=== PATIENT | female | born 1945 | race Caucasian/White ===

== ENCOUNTER 2019-03-26 13:43 | Observation (INO) | payer MEDICARE ==
--- NOTE | 2019-03-26 14:32 | EDM.PDOC ---
ED HPI GENERAL MEDICAL PROBLEM - General Stated Complaint: CHEST PAIN Time Seen by Provider: 03/26/19 14:10 Source of Information: Reports: Patient, EMS, Family History Limitations: Reports: No Limitations - History of Present Illness INITIAL COMMENTS - FREE TEXT/NARRATIVE: brought in by EMS from home states she developed weakness and diarrhea , went to bathroom then felt not well ( same as she felt when she had SD about one month ago) so she decided to call her daughter As her daughter was walking into the apartment she tried to get up and then fainted daughter states she caught her as she was falling and he did not hit her head , no seizure activity noted Earlier pt had complained to daughter that she felt numbness and tingling on the left side of her face , and when she called her daughter with this episode daughter states her speech was slurred but now speech is improving and patient has become more alert and her color is improving Takes " memory pills" ? dementia Onset: Today Onset Date: 03/26/19 Duration: Hour(s): (2) Location: Reports: Abdomen Quality: Reports: Dull Severity: Mild Worsens with: Reports: Movement Context: Reports: Activity Associated Symptoms: Reports: Confusion, Headaches, Malaise, Syncope, Weakness - Related Data Allergies Allergy/AdvReac Type Severity Reaction Status Date / Time No Known Allergies Allergy Verified 03/26/19 14:30 Home Meds: Home Meds Aspirin [Halfprin] 81 mg PO DAILY 03/26/19 [History] Cefdinir [Omnicef] 300 mg PO BID 03/26/19 [History] Esomeprazole Magnesium 40 mg PO DAILY 03/26/19 [History] Latanoprost 1 drop EYEBOTH BEDTIME 03/26/19 [History] Levothyroxine Sodium [Synthroid] 75 mcg PO ACBREAKFAST 03/26/19 [History] Losartan Potassium 100 mg PO DAILY 03/26/19 [History] Prevagen 1 cap PO DAILY 03/26/19 [History] Ticagrelor [Brilinta] 90 mg PO BID 03/26/19 [History] Venlafaxine HCl [Venlafaxine ER] 75 mg PO DAILY 03/26/19 [History] amLODIPine [Norvasc] 2.5 mg PO DAILY 03/26/19 [History] atorvaSTATin [Lipitor] 20 mg PO BEDTIME 03/26/19 [History] metFORMIN HCl [Metformin HCl ER] 500 mg PO DAILY 03/26/19 [History] ED ROS GENERAL - Review of Systems Review Of Systems: See Below Constitutional: Reports: Weakness, Fatigue HEENT: Reports: No Symptoms Respiratory: Reports: No Symptoms Cardiovascular: Reports: Lightheadedness. Denies: Chest Pain, Blood Pressure Problem, Dyspnea on Exertion Endocrine: Reports: Fatigue GI/Abdominal: Reports: Abdominal Pain, Anorexia, Diarrhea, Decreased Appetite, Nausea, Vomiting : Reports: No Symptoms Musculoskeletal: Reports: No Symptoms Skin: Reports: Other (laceration left cheek from fall ) Neurological: Reports: Dizziness, Difficulty Walking, Change in Speech Psychiatric: Reports: No Symptoms - Physical Exam Exam: See Below General Appearance: Alert, WD/WN, No Apparent Distress, Anxious. No: Severe Distress Eye Exam: Bilateral Eye: EOMI Ears: Normal External Exam Nose: Normal Inspection Throat/Mouth: Normal Inspection Head Exam: Facial Abrasions Respiratory/Chest: No Respiratory Distress Cardiovascular: Normal Peripheral Pulses GI/Abdominal: Soft, Non-Tender Neuro Exam (Abbreviated): Alert, Oriented, Normal Reflexes, No Motor/Sensory Deficits, Memory Loss Recent Events, Other (left sided facial droop) DTR: 2+: Patella (R), Patella (L) Back Exam: Normal Inspection, Full Range of Motion Extremities: Normal Inspection, Normal Range of Motion, Non-Tender. No: Pedal Edema Psychiatric: Normal Affect Skin Exam: Warm, Dry EKG INTERPRETATION EKG Date: 03/26/19 Rhythm: NSR [place]: Normal P-Wave: Present QRS: Normal ST-T: Normal Course - Orders/Labs/Meds Orders: Active Orders 24 hr Category Date Time Status Patient Status [ADT] Routine ADT 03/26/19 16:58 Ordered Bedrest Bathroom Privileges [RC] ASDIRECTED Care 03/26/19 16:58 Ordered EKG Documentation Completion [RC] ASDIRECTED Care 03/26/19 14:02 Active Intake and Output [RC] QSHIFT Care 03/26/19 16:59 Ordered Oxygen Therapy [RC] PRN Care 03/26/19 16:56 Ordered Oxygen Therapy [RC] PRN Care 03/26/19 16:58 Ordered VTE/DVT Education [RC] Per Unit Routine Care 03/26/19 16:56 Ordered VTE/DVT Education [RC] Per Unit Routine Care 03/26/19 16:58 Ordered Vital Signs [RC] Q4H Care 03/26/19 16:56 Ordered Vital Signs [RC] Q4H Care 03/26/19 16:58 Ordered 2 Gram Sodium Diet [DIET] Diet 03/26/19 Dinner Ordered Chest 2V [CR] Stat Exams 03/26/19 14:19 Taken Head wo Cont [CT] Stat Exams 03/26/19 14:19 Taken BASIC METABOLIC PANEL,BMP [CHEM] AM Lab 03/27/19 05:11 Ordered C DIFFICILE AG/TOXIN W/REFLEX [RM] Stat Lab 03/26/19 14:24 Ordered CBC WITH AUTO DIFF [HEME] AM Lab 03/27/19 05:11 Ordered STOOL CULTURE Stat Lab 03/26/19 14:22 Ordered TROPONIN I [CHEM] Timed Lab 03/26/19 16:58 Ordered UA W/MICROSCOPIC [URIN] Stat Lab 03/26/19 14:20 Ordered Acetaminophen [Tylenol] Med 03/26/19 16:58 Ordered 650 mg PO Q4H PRN Aspirin [Halfprin] Med 03/27/19 09:00 Ordered 81 mg PO DAILY Esomeprazole Magnesium [Esomeprazole Magnesium] Med 03/27/19 09:00 Ordered 40 mg PO DAILY Levothyroxine Med 03/27/19 07:30 Ordered 75 mcg PO ACBREAKFAST Losartan [Cozaar] Med 03/27/19 09:00 Ordered 100 mg PO DAILY Ondansetron [Zofran ODT] Med 03/26/19 16:58 Ordered 4 mg PO Q6H PRN Sodium Chloride 0.9% [Normal Saline] 1,000 ml Med 03/26/19 15:15 Active IV ASDIRECTED Sodium Chloride 0.9% [Saline Flush] Med 03/26/19 16:58 Ordered 10 ml FLUSH ASDIRECTED PRN Ticagrelor [Brilinta] Med 03/26/19 21:00 Ordered 90 mg PO BID Venlafaxine [Effexor XR] Med 03/27/19 09:00 Ordered 75 mg PO DAILY amLODIPine [Norvasc] Med 03/27/19 09:00 Ordered 2.5 mg PO DAILY atorvaSTATin [Lipitor] Med 03/26/19 21:00 Ordered 20 mg PO BEDTIME metFORMIN [Glucophage XR] Med 03/27/19 09:00 Ordered 500 mg PO DAILY Saline Lock Insert [OM.PC] Routine Oth 03/26/19 16:58 Ordered Resuscitation Status Routine Resus Stat 03/26/19 16:55 Ordered EKG 12 Lead [EK] Routine Ther 03/26/19 14:02 Ordered Medication Orders Acetaminophen (Tylenol) 650 mg PO Q4H PRN PRN Reason: Pain (Mild 1-3)/fever Amlodipine Besylate (Norvasc) 2.5 mg PO DAILY [facility] Aspirin (Halfprin) 81 mg PO DAILY [facility] Atorvastatin Calcium (Lipitor) 20 mg PO BEDTIME [facility] Sodium Chloride (Normal Saline) 1,000 mls @ 999 mls/hr IV ASDIRECTED [facility] Levothyroxine Sodium (Levothyroxine) 75 mcg PO ACBREAKFAST [facility] Losartan Potassium (Cozaar) 100 mg PO DAILY [facility] Metformin HCl (Glucophage Xr) 500 mg PO DAILY [facility] Non-Formulary Medication (Esomeprazole Magnesium [Esomeprazole Magnesium]) 40 mg PO DAILY [facility] Ondansetron HCl (Zofran Odt) 4 mg PO Q6H PRN PRN Reason: nausea, able to take PO Sodium Chloride (Saline Flush) 10 ml FLUSH ASDIRECTED PRN PRN Reason: Keep Vein Open Ticagrelor (Brilinta) 90 mg PO BID [facility] Venlafaxine HCl (Effexor Xr) 75 mg PO DAILY [facility] Labs: Laboratory Tests 03/26/19 03/26/19 03/26/19 Range/Units 14:10 14:10 14:10 WBC 15.4 H (4.5-12.0) X10-3/uL RBC 5.65 H (3.23-5.20) x10(6)uL Hgb 14.5 (11.5-15.5) g/dL Hct 44.9 (30.0-51.3) % MCV 79.4 L (80-96) fL MCH 25.7 L (27.7-33.6) pg MCHC 32.3 (32.2-35.4) g/dL RDW 14.6 (11.5-15.5) % Plt Count 548 H (125-369) X10(3)uL MPV 8.0 (7.4-10.4) fL Neut % (Auto) 73.0 (46-82) % Lymph % (Auto) 17.0 (13-37) % Tyler % (Auto) 6.4 (4-12) % Eos % (Auto) 1 (1.0-5.0) % Baso % (Auto) 2 (0-2) % Neut # (Auto) 11.3 H (1.6-8.3) # Lymph # (Auto) 2.6 (0.6-5.0) # Tyler # (Auto) 1.0 (0.0-1.3) # Eos # (Auto) 0.2 (0.0-0.8) # Baso # (Auto) 0.3 H (0.0-0.2) # PT (8.7-11.1) INR (0.89-1.13) Sodium 142 (135-145) mmol/L Potassium 3.5 (3.5-5.3) mmol/L Chloride 105 (100-110) mmol/L Carbon Dioxide 29 (21-32) mmol/L BUN 22 H D (7-18) mg/dL Creatinine 1.3 H (0.55-1.02) mg/dL Est Cr Clr Drug Dosing TNP Estimated GFR (MDRD) 40 L (>60) BUN/Creatinine Ratio 16.9 (9-20) Glucose 164 H (80-116) mg/dL Calcium 9.0 (8.6-10.2) mg/dL Total Bilirubin 0.5 (0.1-1.3) mg/dL AST 34 H D (5-25) IU/L ALT 41 H D (12-36) U/L Alkaline Phosphatase 91 (56-112) IU/L Troponin I 9.6 (4.0-60.3) pg/mL Total Protein 7.6 (6.0-8.0) g/dL Albumin 3.8 (3.2-4.6) g/dL Globulin 3.8 g/dL Albumin/Globulin Ratio 1.0 / Range/Units 14:10 WBC (4.5-12.0) X10-3/uL RBC (3.23-5.20) x10(6)uL Hgb (11.5-15.5) g/dL Hct (30.0-51.3) % MCV (80-96) fL MCH (27.7-33.6) pg MCHC (32.2-35.4) g/dL RDW (11.5-15.5) % Plt Count (125-369) X10(3)uL MPV (7.4-10.4) fL Neut % (Auto) (46-82) % Lymph % (Auto) (13-37) % Tyler % (Auto) (4-12) % Eos % (Auto) (1.0-5.0) % Baso % (Auto) (0-2) % Neut # (Auto) (1.6-8.3) # Lymph # (Auto) (0.6-5.0) # Tyler # (Auto) (0.0-1.3) # Eos # (Auto) (0.0-0.8) # Baso # (Auto) (0.0-0.2) # PT 10.3 (8.7-11.1) INR 1.06 (0.89-1.13) Sodium (135-145) mmol/L Potassium (3.5-5.3) mmol/L Chloride (100-110) mmol/L Carbon Dioxide (21-32) mmol/L BUN (7-18) mg/dL Creatinine (0.55-1.02) mg/dL Est Cr Clr Drug Dosing Estimated GFR (MDRD) (>60) BUN/Creatinine Ratio (9-20) Glucose (80-116) mg/dL Calcium (8.6-10.2) mg/dL Total Bilirubin (0.1-1.3) mg/dL AST (5-25) IU/L ALT (12-36) U/L Alkaline Phosphatase (56-112) IU/L Troponin I (4.0-60.3) pg/mL Total Protein (6.0-8.0) g/dL Albumin (3.2-4.6) g/dL Globulin g/dL Albumin/Globulin Ratio Meds: Medications Generic Name Dose Route Start Last Admin Trade Name Freq PRN Reason Stop Dose Admin Acetaminophen 650 mg 03/26/19 16:58 Tylenol PO Q4H PRN Pain (Mild 1-3)/fever Amlodipine Besylate 2.5 mg 03/27/19 09:00 Norvasc PO DAILY [facility] Aspirin 81 mg 03/27/19 09:00 Halfprin PO DAILY [facility] Atorvastatin Calcium 20 mg 03/26/19 21:00 Lipitor PO BEDTIME [facility] Sodium Chloride 1,000 mls @ 999 mls/hr 03/26/19 15:15 Normal Saline IV ASDIRECTED [facility] Levothyroxine Sodium 75 mcg 03/27/19 07:30 Levothyroxine PO ACBREAKFAST [facility] Losartan Potassium 100 mg 03/27/19 09:00 Cozaar PO DAILY [facility] Metformin HCl 500 mg 03/27/19 09:00 Glucophage Xr PO DAILY [facility] Non-Formulary Medication 40 mg 03/27/19 09:00 Esomeprazole Magnesium [Esomeprazole Magnesium] PO DAILY [facility] Ondansetron HCl 4 mg 03/26/19 16:58 Zofran Odt PO Q6H PRN nausea, able to take PO Sodium Chloride 10 ml 03/26/19 16:58 Saline Flush FLUSH ASDIRECTED PRN Keep Vein Open Ticagrelor 90 mg 03/26/19 21:00 Brilinta PO BID [facility] Venlafaxine HCl 75 mg 03/27/19 09:00 Effexor Xr PO DAILY ANNA - Re-Assessments/Exams Free Text/Narrative Re-Assessment/Exam: 03/26/19 15:53 pt has remained stable with no mental status changes Labs: elevated WBC with left shift 03/26/19 15:59 Departure - Departure Time of Disposition: 17:10 Disposition: Refer to Observation Condition: Fair Clinical Impression: Syncope and collapse, Diarrhea, Weakness generalized, Stented coronary artery, Facial droop - Discharge Information *PRESCRIPTION DRUG MONITORING PROGRAM REVIEWED*: Not Applicable *COPY OF PRESCRIPTION DRUG MONITORING REPORT IN PATIENT [place]: Not Applicable Referrals: Janene King MD [Primary Care Provider] - Sepsis Event Note - Focused Exam Date Exam was Performed: 03/26/19 Time Exam was Performed: 17:06 - My Orders Last 24 Hours: My Active Orders 03/26/19 14:02 EKG Documentation Completion [RC] ASDIRECTED EKG 12 Lead [EK] Routine 03/26/19 14:19 Chest 2V [CR] Stat Head wo Cont [CT] Stat 03/26/19 14:20 UA W/MICROSCOPIC [URIN] Stat 03/26/19 14:22 STOOL CULTURE Stat 03/26/19 14:24 C DIFFICILE AG/TOXIN W/REFLEX [RM] Stat 03/26/19 15:15 Sodium Chloride 0.9% [Normal Saline] 1,000 ml IV ASDIRECTED 03/26/19 16:55 Resuscitation Status Routine 03/26/19 16:56 Oxygen Therapy [RC] PRN VTE/DVT Education [RC] Per Unit Routine Vital Signs [RC] Q4H 03/26/19 16:58 Patient Status [ADT] Routine Bedrest Bathroom Privileges [RC] ASDIRECTED Oxygen Therapy [RC] PRN VTE/DVT Education [RC] Per Unit Routine Vital Signs [RC] Q4H TROPONIN I [CHEM] Timed Acetaminophen [Tylenol] 650 mg PO Q4H PRN Ondansetron [Zofran ODT] 4 mg PO Q6H PRN Sodium Chloride 0.9% [Saline Flush] 10 ml FLUSH ASDIRECTED PRN Saline Lock Insert [OM.PC] Routine 03/26/19 16:59 Intake and Output [RC] QSHIFT 03/26/19 21:00 Ticagrelor [Brilinta] 90 mg PO BID atorvaSTATin [Lipitor] 20 mg PO BEDTIME 03/26/19 Dinner 2 Gram Sodium Diet [DIET] 03/27/19 05:11 BASIC METABOLIC PANEL,BMP [CHEM] AM CBC WITH AUTO DIFF [HEME] AM 03/27/19 07:30 Levothyroxine 75 mcg PO ACBREAKFAST 03/27/19 09:00 Aspirin [Halfprin] 81 mg PO DAILY Esomeprazole Magnesium [Esomeprazole Magnesium] 40 mg PO DAILY Losartan [Cozaar] 100 mg PO DAILY Venlafaxine [Effexor XR] 75 mg PO DAILY amLODIPine [Norvasc] 2.5 mg PO DAILY metFORMIN [Glucophage XR] 500 mg PO DAILY - Assessment/Plan Last 24 Hours: My Active Orders 03/26/19 14:02 EKG Documentation Completion [RC] ASDIRECTED EKG 12 Lead [EK] Routine 03/26/19 14:19 Chest 2V [CR] Stat Head wo Cont [CT] Stat 03/26/19 14:20 UA W/MICROSCOPIC [URIN] Stat 03/26/19 14:22 STOOL CULTURE Stat 03/26/19 14:24 C DIFFICILE AG/TOXIN W/REFLEX [RM] Stat 03/26/19 15:15 Sodium Chloride 0.9% [Normal Saline] 1,000 ml IV ASDIRECTED 03/26/19 16:55 Resuscitation Status Routine 03/26/19 16:56 Oxygen Therapy [RC] PRN VTE/DVT Education [RC] Per Unit Routine Vital Signs [RC] Q4H 03/26/19 16:58 Patient Status [ADT] Routine Bedrest Bathroom Privileges [RC] ASDIRECTED Oxygen Therapy [RC] PRN VTE/DVT Education [RC] Per Unit Routine Vital Signs [RC] Q4H TROPONIN I [CHEM] Timed Acetaminophen [Tylenol] 650 mg PO Q4H PRN Ondansetron [Zofran ODT] 4 mg PO Q6H PRN Sodium Chloride 0.9% [Saline Flush] 10 ml FLUSH ASDIRECTED PRN Saline Lock Insert [OM.PC] Routine 03/26/19 16:59 Intake and Output [RC] QSHIFT 03/26/19 21:00 Ticagrelor [Brilinta] 90 mg PO BID atorvaSTATin [Lipitor] 20 mg PO BEDTIME 03/26/19 Dinner 2 Gram Sodium Diet [DIET] 03/27/19 05:11 BASIC METABOLIC PANEL,BMP [CHEM] AM CBC WITH AUTO DIFF [HEME] AM 03/27/19 07:30 Levothyroxine 75 mcg PO ACBREAKFAST 03/27/19 09:00 Aspirin [Halfprin] 81 mg PO DAILY Esomeprazole Magnesium [Esomeprazole Magnesium] 40 mg PO DAILY Losartan [Cozaar] 100 mg PO DAILY Venlafaxine [Effexor XR] 75 mg PO DAILY amLODIPine [Norvasc] 2.5 mg PO DAILY metFORMIN [Glucophage XR] 500 mg PO DAILY
[2019-03-26] MEDS ORDERED: Sodium Chloride 0.9% 1,000 ML IV SCH ×2 (15:15→18:15)
[2019-03-26] MEDS ORDERED: Ondansetron 4 MG Tab.DIS PO PRN (16:58)
[2019-03-26] MEDS ORDERED: Acetaminophen 325 MG Tab PO PRN (16:58)
--- NOTE | 2019-03-26 18:17 | PCM.HP.2 ---
H&P History of Present Illness - General Date of Service: 03/26/19 Admit Problem/Dx: Admission Diagnosis/Problem Admission Diagnosis/Problem Syncope and collapse Source of Information: Patient, Family History Limitations: Reports: No Limitations - History of Present Illness Initial Comments - Free Text/Narative: Heather is a 74-year-old female who was brought in by EMS, after syncopal event. She complained initially of not feeling well, with 2 episodes of loose stoools and in the presence of her daughter, while standing,she lost consciousness. She was noted to be cool, clammy, sweaty and pale. She regained consciousness After a few minutes. At The time of my physical examination this evening, she feels much better. She denies any specific chest pain, shortness of breath or headache. Did not hit the head and there was no seizure. She has a history of coronary disease and a stent about a month ago. She also has hypertension that is well controlled. The daughter endorses some slurred speech that was noted earlier ,along with numbness of the face but focal no weakness. - Related Data Allergies/Adverse Reactions: Allergies Allergy/AdvReac Type Severity Reaction Status Date / Time No Known Allergies Allergy Verified 03/26/19 14:30 Home Medications: Home Meds Aspirin [Halfprin] 81 mg PO DAILY 03/26/19 [History] Cefdinir [Omnicef] 300 mg PO BID 03/26/19 [History] Esomeprazole Magnesium 40 mg PO DAILY 03/26/19 [History] Latanoprost 1 drop EYEBOTH BEDTIME 03/26/19 [History] Levothyroxine Sodium [Synthroid] 75 mcg PO ACBREAKFAST 03/26/19 [History] Losartan Potassium 100 mg PO DAILY 03/26/19 [History] Prevagen 1 cap PO DAILY 03/26/19 [History] Ticagrelor [Brilinta] 90 mg PO BID 03/26/19 [History] Venlafaxine HCl [Venlafaxine ER] 75 mg PO DAILY 03/26/19 [History] amLODIPine [Norvasc] 2.5 mg PO DAILY 03/26/19 [History] atorvaSTATin [Lipitor] 20 mg PO BEDTIME 03/26/19 [History] metFORMIN HCl [Metformin HCl ER] 500 mg PO DAILY 03/26/19 [History] Past Medical History HEENT History: Reports: Cataract, Impaired Vision Cardiovascular History: Reports: Hypertension, [place], Stents Genitourinary History: Reports: Urinary Incontinence [employer] History: Reports: Musculoskeletal History: Reports: Arthritis, Back Pain, Chronic Psychiatric History: Reports: Depression Endocrine/Metabolic History: Reports: Diabetes, Type II - Past Surgical History HEENT Surgical History: Reports: Oral Surgery GI Surgical History: Reports: Appendectomy, Cholecystectomy, Colonoscopy, EGD Female Surgical History: Reports: Hysterectomy, Ureteral Stent Musculoskeletal Surgical History: Reports: Carpal Tunnel, Hip Replacement, Other (See Below) Other Musculoskeletal Surgeries/Procedures:: Neck surgery, back surgery Social & Family History - Tobacco Use Smoking Status *Q: Former Smoker Used Tobacco, but Quit: Yes Month/Year Tobacco Last Used: 1991 - Caffeine Use Caffeine Use: Reports: Soda - Recreational Drug Use Recreational Drug Use: No H&P Review of Systems - Review of Systems: Review Of Systems: Comprehensive ROS is negative, except as noted in HPI. Exam - Exam Exam: See Below - Vital Signs Vital Signs: Last Vital Signs Temp 97.7 F 03/26/19 17:00 Pulse 77 03/26/19 17:00 Resp 18 03/26/19 17:00 BP 160/81 H 03/26/19 17:00 Pulse Ox 100 03/26/19 17:00 Weight: 69.944 kg - Exam General: Alert, Oriented, 4 HEENT: PERRLA, Hearing Intact, Mucosa Moist & [place], Nares Patent, Normal Nasal Septum, Posterior Pharynx Clear, Conjunctiva Clear, EOMI, EACs Clear, TMs Clear Neck: Supple, Trachea Midline, 2 Lungs: Clear to Auscultation, Normal Respiratory Effort Cardiovascular: Regular Rate, Regular Rhythm GI/Abdominal Exam: Normal Bowel Sounds, Soft, Non-Tender, No Organomegaly, No Distention, No Abnormal Bruit, No Mass, Pelvis Stable (Female) Exam: Deferred Rectal (Female) Exam: Deferred Back Exam: Normal Inspection, Full Range of Motion, NT Extremities: Normal Inspection, Normal Range of Motion, Non-Tender, No Pedal Edema, Normal Capillary Refill Skin: Warm, Dry, Intact Neurological: Cranial Nerves Intact, Reflexes Equal Bilateral Neuro Extensive - Mental Status: Alert, Oriented x3, Normal Mood/Affect, Normal Cognition Neuro Extensive - Motor, Sensory, Reflexes: CN II-XII Intact, Normal Gait, Normal Reflexes Psychiatric: Alert, Normal Affect, Normal Mood - Patient Data Lab Results Last 24 hrs: Laboratory Results - last 24 hr 03/26/19 03/26/19 03/26/19 Range/Units 14:10 14:10 14:10 WBC 15.4 H (4.5-12.0) X10-3/uL RBC 5.65 H (3.23-5.20) x10(6)uL Hgb 14.5 (11.5-15.5) g/dL Hct 44.9 (30.0-51.3) % MCV 79.4 L (80-96) fL MCH 25.7 L (27.7-33.6) pg MCHC 32.3 (32.2-35.4) g/dL RDW 14.6 (11.5-15.5) % Plt Count 548 H (125-369) X10(3)uL MPV 8.0 (7.4-10.4) fL Neut % (Auto) 73.0 (46-82) % Lymph % (Auto) 17.0 (13-37) % [place] % (Auto) 6.4 (4-12) % Eos % (Auto) 1 (1.0-5.0) % Baso % (Auto) 2 (0-2) % Neut # (Auto) 11.3 H (1.6-8.3) # Lymph # (Auto) 2.6 (0.6-5.0) # Bound[place] # (Auto) 1.0 (0.0-1.3) # Eos # (Auto) 0.2 (0.0-0.8) # Baso # (Auto) 0.3 H (0.0-0.2) # PT (8.7-11.1) INR (0.89-1.13) Sodium 142 (135-145) mmol/L Potassium 3.5 (3.5-5.3) mmol/L Chloride 105 (100-110) mmol/L Carbon Dioxide 29 (21-32) mmol/L BUN 22 H D (7-18) mg/dL Creatinine 1.3 H (0.55-1.02) mg/dL Est Cr Clr Drug Dosing TNP Estimated GFR (MDRD) 40 L (>60) BUN/Creatinine Ratio 16.9 (9-20) Glucose 164 H (80-116) mg/dL Calcium 9.0 (8.6-10.2) mg/dL Total Bilirubin 0.5 (0.1-1.3) mg/dL AST 34 H D (5-25) IU/L ALT 41 H D (12-36) U/L Alkaline Phosphatase 91 (56-112) IU/L Troponin I 9.6 (4.0-60.3) pg/mL Total Protein 7.6 (6.0-8.0) g/dL Albumin 3.8 (3.2-4.6) g/dL Globulin 3.8 g/dL Albumin/Globulin Ratio 1.0 03/26/19 03/26/19 Range/Units 14:10 17:28 WBC (4.5-12.0) X10-3/uL RBC (3.23-5.20) x10(6)uL Hgb (11.5-15.5) g/dL Hct (30.0-51.3) % MCV (80-96) fL MCH (27.7-33.6) pg MCHC (32.2-35.4) g/dL RDW (11.5-15.5) % Plt Count (125-369) X10(3)uL MPV (7.4-10.4) fL Neut % (Auto) (46-82) % Lymph % (Auto) (13-37) % [place] % (Auto) (4-12) % Eos % (Auto) (1.0-5.0) % Baso % (Auto) (0-2) % Neut # (Auto) (1.6-8.3) # Lymph # (Auto) (0.6-5.0) # Boundary # (Auto) (0.0-1.3) # Eos # (Auto) (0.0-0.8) # Baso # (Auto) (0.0-0.2) # PT 10.3 (8.7-11.1) INR 1.06 (0.89-1.13) Sodium (135-145) mmol/L Potassium (3.5-5.3) mmol/L Chloride (100-110) mmol/L Carbon Dioxide (21-32) mmol/L BUN (7-18) mg/dL Creatinine (0.55-1.02) mg/dL Est Cr Clr Drug Dosing Estimated GFR (MDRD) (>60) BUN/Creatinine Ratio (9-20) Glucose (80-116) mg/dL Calcium (8.6-10.2) mg/dL Total Bilirubin (0.1-1.3) mg/dL AST (5-25) IU/L ALT (12-36) U/L Alkaline Phosphatase (56-112) IU/L Troponin I 14.0 (4.0-60.3) pg/mL Total Protein (6.0-8.0) g/dL Albumin (3.2-4.6) g/dL Globulin g/dL Albumin/Globulin Ratio Result Diagrams: 03/26/19 14:10 03/26/19 14:10 EKG INTERPRETATION Rhythm: NSR Sepsis Event Note - Focused Exam Vital Signs: Vital Signs Temp Pulse Resp BP Pulse Ox Pulse Ox 03/26/19 17:00 97.7 F 77 18 160/81 H 100 03/26/19 16:58 100 Date Exam was Performed: 03/26/19 Time Exam was Performed: 18:12 - Problem List (1) Vasovagal syncope SNOMED Code(s): 740721915 ICD Code: R55 - SYNCOPE AND COLLAPSE Status: Acute Current Visit: Yes (2) CAD (coronary artery disease) SNOMED Code(s): 98881472 ICD Code: I25.10 - ATHSCL HEART DISEASE OF [place] CORONARY ARTERY W/O ANG PCTRS Status: Chronic Current Visit: Yes Qualifiers: Coronary Disease-Associated Artery/Lesion type: [place] artery Associated angina: without angina (3) GUA[place]CO (acute kidney injury) SNOMED Code(s): 23217764, 92577501 ICD Code: N17.9 - ACUTE KIDNEY FAILURE, UNSPECIFIED Status: Acute Current Visit: Yes (4) HTN (hypertension) SNOMED Code(s): 56451509 ICD Code: I10 - ESSENTIAL (PRIMARY) HYPERTENSION Status: Chronic Current Visit: Yes Qualifiers: Hypertension type: essential hypertension Qualified Code(s): I10 - Essential (primary) hypertension (5) Diabetes type 2, controlled SNOMED Code(s): 15680267, 149150878 ICD Code: E11.9 - TYPE 2 DIABETES MELLITUS WITHOUT COMPLICATIONS Status: Acute Current Visit: Yes Qualifiers: Diabetes mellitus long term care social worker insulin use: unspecified long term care social worker insulin use status (6) MDD (major depressive disorder) SNOMED Code(s): 879149240 ICD Code: F32.9 - MAJOR DEPRESSIVE DISORDER, SINGLE EPISODE, UNSPECIFIED Status: Chronic Current Visit: Yes Qualifiers: Major depression recurrence: recurrent Psychotic features: without psychotic features (7) Diarrhea SNOMED Code(s): 95941383 ICD Code: R19.7 - DIARRHEA, UNSPECIFIED Status: Acute Current Visit: Yes Qualifiers: Diarrhea type: unspecified type Qualified Code(s): R19.7 - Diarrhea, unspecified Problem List Initiated/Reviewed/Updated: Yes Orders Last 24hrs: Active Orders 24 hr Category Date Time Status Patient Status [ADT] Routine ADT 03/26/19 16:58 Active Bedrest Bathroom Privileges [RC] ASDIRECTED Care 03/26/19 16:58 Active EKG Documentation Completion [RC] ASDIRECTED Care 03/26/19 14:02 Active EKG Documentation Completion [RC] ASDIRECTED Care 03/26/19 18:11 Ordered Intake and Output [RC] QSHIFT Care 03/26/19 16:59 Active Oxygen Therapy [RC] PRN Care 03/26/19 16:56 Active Oxygen Therapy [RC] PRN Care 03/26/19 16:58 Active VTE/DVT Education [RC] Per Unit Routine Care 03/26/19 16:56 Active VTE/DVT Education [RC] Per Unit Routine Care 03/26/19 16:58 Active Vital Signs [RC] Q4H Care 03/26/19 16:56 Active Vital Signs [RC] Q4H Care 03/26/19 16:58 Active 2 Gram Sodium Diet [DIET] Diet 03/26/19 Dinner Active Chest 2V [CR] Stat Exams 03/26/19 14:19 Taken Head wo Cont [CT] Stat Exams 03/26/19 14:19 Taken BASIC METABOLIC PANEL,BMP [CHEM] AM Lab 03/27/19 05:11 Ordered C DIFFICILE AG/TOXIN W/REFLEX [RM] Stat Lab 03/26/19 14:24 Ordered CBC WITH AUTO DIFF [HEME] AM Lab 03/27/19 05:11 Ordered STOOL CULTURE Stat Lab 03/26/19 14:22 Ordered TROPONIN I [CHEM] AM Lab 03/27/19 05:11 Ordered UA W/MICROSCOPIC [URIN] Stat Lab 03/26/19 14:20 Ordered Acetaminophen [Tylenol] Med 03/26/19 16:58 Active 650 mg PO Q4H PRN Aspirin [Halfprin] Med 03/27/19 09:00 Active 81 mg PO DAILY Esomeprazole Magnesium [Esomeprazole Magnesium] Med 03/27/19 09:00 Active 40 mg PO DAILY Levothyroxine Med 03/27/19 07:30 Active 75 mcg PO ACBREAKFAST Losartan [Cozaar] Med 03/27/19 09:00 Active 100 mg PO DAILY Ondansetron [Zofran ODT] Med 03/26/19 16:58 Active 4 mg PO Q6H PRN Sodium Chloride 0.9% @ 75 MLS/HR(1000ml) Med 03/26/19 18:15 Ordered Sodium Chloride 0.9% [Normal Saline] 1,000 ml IV ASDIRECTED Sodium Chloride 0.9% [Normal Saline] 1,000 ml Med 03/26/19 15:15 Active IV ASDIRECTED Sodium Chloride 0.9% [Saline Flush] Med 03/26/19 16:58 Active 10 ml FLUSH ASDIRECTED PRN Ticagrelor [Brilinta] Med 03/26/19 21:00 Active 90 mg PO BID Venlafaxine [Effexor XR] Med 03/27/19 09:00 Active 75 mg PO DAILY amLODIPine [Norvasc] Med 03/27/19 09:00 Active 2.5 mg PO DAILY atorvaSTATin [Lipitor] Med 03/26/19 21:00 Active 20 mg PO BEDTIME metFORMIN [Glucophage XR] Med 03/27/19 09:00 Active 500 mg PO DAILY Saline Lock Insert [OM.PC] Routine Oth 03/26/19 16:58 Ordered Resuscitation Status Routine Resus Stat 03/26/19 16:55 Ordered EKG 12 Lead [EK] AM Ther 03/27/19 05:11 Ordered EKG 12 Lead [EK] Routine Ther 03/26/19 14:02 Ordered Medication Orders Acetaminophen (Tylenol) 650 mg PO Q4H PRN PRN Reason: Pain (Mild 1-3)/fever Amlodipine Besylate (Norvasc) 2.5 mg PO DAILY ANNA Aspirin (Halfprin) 81 mg PO DAILY ANNA Atorvastatin Calcium (Lipitor) 20 mg PO BEDTIME ANAN Sodium Chloride (Normal Saline) 1,000 mls @ 999 mls/hr IV ASDIRECTED ANNA Sodium Chloride (Normal Saline) 1,000 mls @ 75 mls/hr IV ASDIRECTED ANNA Levothyroxine Sodium (Levothyroxine) 75 mcg PO ACBREAKFAST ANNA Losartan Potassium (Cozaar) 100 mg PO DAILY ANNA Metformin HCl (Glucophage Xr) 500 mg PO DAILY ANNA Non-Formulary Medication (Esomeprazole Magnesium [Esomeprazole Magnesium]) 40 mg PO DAILY ANNA Ondansetron HCl (Zofran Odt) 4 mg PO Q6H PRN PRN Reason: nausea, able to take PO Sodium Chloride (Saline Flush) 10 ml FLUSH ASDIRECTED PRN PRN Reason: Keep Vein Open Ticagrelor (Brilinta) 90 mg PO BID ANNA Venlafaxine HCl (Effexor Xr) 75 mg PO DAILY ANNA Assessment/Plan Comment:: Replace IVF and keep on the monitor overnight. DC in AM if asymptomatic and labs are normal
[2019-03-26] MEDS: TICAGRELOR 90 MG PO SCH (21:15)
[2019-03-26] MEDS: Sodium Chloride 0.9% 10 ML Syringe FLUSH PRN ×3 (22:35→22:46)
[2019-03-27] MEDS ORDERED: LEVOTHYROXINE 75 MCG PO SCH (06:00)
[2019-03-27] MEDS: TICAGRELOR 90 MG PO SCH (08:36)
[2019-03-27] MEDS ORDERED: Losartan 50 MG Tab PO SCH (09:00)
[2019-03-27] MEDS ORDERED: Aspirin 81 MG Tab.EC PO SCH (09:00)
[2019-03-27] MEDS ORDERED: Non-Formulary Medication 1 Each (Esomeprazole Magnesium [Esomeprazole Magnesium] 40 MG) PO SCH (09:00)
[2019-03-27] MEDS ORDERED: amLODIPine 2.5 MG Tab PO SCH (09:00)
[2019-03-27] MEDS ORDERED: Venlafaxine 75 MG Cap.ER PO SCH (09:00)
[2019-03-27] MEDS ORDERED: metFORMIN 500 MG Tab.ER PO SCH (09:00)
--- NOTE | 2019-03-27 09:32 | PCM.PN ---
- General Info Date of Service: 03/27/19 Subjective Update: Doing well. Functional Status: Reports: Pain Controlled - Review of Systems General: Reports: No Symptoms HEENT: Reports: No Symptoms Cardiovascular: Reports: No Symptoms Gastrointestinal: Reports: No Symptoms - Patient Data Vitals - Most Recent: Last Vital Signs Temp 98.9 F 03/27/19 09:00 Pulse 72 03/27/19 09:00 Resp 14 03/27/19 09:00 BP 167/84 H 03/27/19 09:00 Pulse Ox 99 03/27/19 09:00 Weight - Most Recent: 69.944 kg I&O - Last 24 Hours: Intake & Output 03/26/19 03/27/19 03/27/19 22:59 06:59 14:59 Intake Total 454 935 Output Total 0 Balance 454 935 Lab Results Last 24 Hours: Laboratory Results - last 24 hr 03/26/19 03/26/19 03/26/19 Range/Units 14:10 14:10 14:10 WBC 15.4 H (4.5-12.0) X10-3/uL RBC 5.65 H (3.23-5.20) x10(6)uL Hgb 14.5 (11.5-15.5) g/dL Hct 44.9 (30.0-51.3) % MCV 79.4 L (80-96) fL MCH 25.7 L (27.7-33.6) pg MCHC 32.3 (32.2-35.4) g/dL RDW 14.6 (11.5-15.5) % Plt Count 548 H (125-369) X10(3)uL MPV 8.0 (7.4-10.4) fL Neut % (Auto) 73.0 (46-82) % Lymph % (Auto) 17.0 (13-37) % [place] % (Auto) 6.4 (4-12) % Eos % (Auto) 1 (1.0-5.0) % Baso % (Auto) 2 (0-2) % Neut # (Auto) 11.3 H (1.6-8.3) # Lymph # (Auto) 2.6 (0.6-5.0) # Mobile # (Auto) 1.0 (0.0-1.3) # Eos # (Auto) 0.2 (0.0-0.8) # Baso # (Auto) 0.3 H (0.0-0.2) # PT (8.7-11.1) INR (0.89-1.13) Sodium 142 (135-145) mmol/L Potassium 3.5 (3.5-5.3) mmol/L Chloride 105 (100-110) mmol/L Carbon Dioxide 29 (21-32) mmol/L BUN 22 H D (7-18) mg/dL Creatinine 1.3 H (0.55-1.02) mg/dL Est Cr Clr Drug Dosing TNP Estimated GFR (MDRD) 40 L (>60) BUN/Creatinine Ratio 16.9 (9-20) Glucose 164 H (80-116) mg/dL Calcium 9.0 (8.6-10.2) mg/dL Total Bilirubin 0.5 (0.1-1.3) mg/dL AST 34 H D (5-25) IU/L ALT 41 H D (12-36) U/L Alkaline Phosphatase 91 (56-112) IU/L Troponin I 9.6 (4.0-60.3) pg/mL Total Protein 7.6 (6.0-8.0) g/dL Albumin 3.8 (3.2-4.6) g/dL Globulin 3.8 g/dL Albumin/Globulin Ratio 1.0 Urine Color (YELLOW) Urine Appearance (CLEAR) Urine pH (5.0-6.5) Ur Specific [place] (1.010-1.025) Urine Protein (NEGATIVE) mg/dL Urine Glucose (UA) (NORMAL) mg/dL Urine Ketones (NEGATIVE) mg/dL Urine Occult Blood (NEGATIVE) Urine Nitrite (NEGATIVE) Urine Bilirubin (NEGATIVE) Urine Urobilinogen (NEGATIVE) mg/dL Ur Leukocyte Esterase (NEGATIVE) Urine RBC (0-5) Urine WBC (0-5) Ur Squamous Epith Cells (NS,R,O) Urine Bacteria (NS) Urine Mucus (NS) 03/26/19 03/26/19 03/26/19 Range/Units 14:10 17:28 21:45 WBC (4.5-12.0) X10-3/uL RBC (3.23-5.20) x10(6)uL Hgb (11.5-15.5) g/dL Hct (30.0-51.3) % MCV (80-96) fL MCH (27.7-33.6) pg MCHC (32.2-35.4) g/dL RDW (11.5-15.5) % Plt Count (125-369) X10(3)uL MPV (7.4-10.4) fL Neut % (Auto) (46-82) % Lymph % (Auto) (13-37) % [place] % (Auto) (4-12) % Eos % (Auto) (1.0-5.0) % Baso % (Auto) (0-2) % Neut # (Auto) (1.6-8.3) # Lymph # (Auto) (0.6-5.0) # Mobile # (Auto) (0.0-1.3) # Eos # (Auto) (0.0-0.8) # Baso # (Auto) (0.0-0.2) # PT 10.3 (8.7-11.1) INR 1.06 (0.89-1.13) Sodium (135-145) mmol/L Potassium (3.5-5.3) mmol/L Chloride (100-110) mmol/L Carbon Dioxide (21-32) mmol/L BUN (7-18) mg/dL Creatinine (0.55-1.02) mg/dL Est Cr Clr Drug Dosing Estimated GFR (MDRD) (>60) BUN/Creatinine Ratio (9-20) Glucose (80-116) mg/dL Calcium (8.6-10.2) mg/dL Total Bilirubin (0.1-1.3) mg/dL AST (5-25) IU/L ALT (12-36) U/L Alkaline Phosphatase (56-112) IU/L Troponin I 14.0 (4.0-60.3) pg/mL Total Protein (6.0-8.0) g/dL Albumin (3.2-4.6) g/dL Globulin g/dL Albumin/Globulin Ratio Urine Color Yellow (YELLOW) Urine Appearance Clear (CLEAR) Urine pH 5.0 (5.0-6.5) Ur Specific [place] 1.025 (1.010-1.025) Urine Protein Negative (NEGATIVE) mg/dL Urine Glucose (UA) Normal (NORMAL) mg/dL Urine Ketones Negative (NEGATIVE) mg/dL Urine Occult Blood Negative (NEGATIVE) Urine Nitrite Negative (NEGATIVE) Urine Bilirubin Negative (NEGATIVE) Urine Urobilinogen Normal (NEGATIVE) mg/dL Ur Leukocyte Esterase Negative (NEGATIVE) Urine RBC 0-5 (0-5) Urine WBC 0-5 (0-5) Ur Squamous Epith Cells Occasional (NS,R,O) Urine Bacteria Few H (NS) Urine Mucus Few H (NS) 03/27/19 03/27/19 03/27/19 Range/Units 05:55 05:55 05:55 WBC 13.6 H (4.5-12.0) X10-3/uL RBC 4.66 (3.23-5.20) x10(6)uL Hgb 12.1 (11.5-15.5) g/dL Hct 36.8 (30.0-51.3) % MCV 79.0 L (80-96) fL MCH 26.0 L (27.7-33.6) pg MCHC 32.9 (32.2-35.4) g/dL RDW 14.6 (11.5-15.5) % Plt Count 374 H (125-369) X10(3)uL MPV 8.1 (7.4-10.4) fL Neut % (Auto) 64.2 (46-82) % Lymph % (Auto) 27.0 (13-37) % [place] % (Auto) 6.2 (4-12) % Eos % (Auto) 2 (1.0-5.0) % Baso % (Auto) 1 (0-2) % Neut # (Auto) 8.7 H (1.6-8.3) # Lymph # (Auto) 3.7 (0.6-5.0) # Mobile # (Auto) 0.8 (0.0-1.3) # Eos # (Auto) 0.3 (0.0-0.8) # Baso # (Auto) 0.1 (0.0-0.2) # PT (8.7-11.1) INR (0.89-1.13) Sodium 143 (135-145) mmol/L Potassium 3.9 (3.5-5.3) mmol/L Chloride 107 (100-110) mmol/L Carbon Dioxide 28 (21-32) mmol/L BUN 17 (7-18) mg/dL Creatinine 0.9 (0.55-1.02) mg/dL Est Cr Clr Drug Dosing 50.34 Estimated GFR (MDRD) > 60 (>60) BUN/Creatinine Ratio 18.9 (9-20) Glucose 110 (80-116) mg/dL Calcium 8.2 L (8.6-10.2) mg/dL Total Bilirubin (0.1-1.3) mg/dL AST (5-25) IU/L ALT (12-36) U/L Alkaline Phosphatase (56-112) IU/L Troponin I 12.1 (4.0-60.3) pg/mL Total Protein (6.0-8.0) g/dL Albumin (3.2-4.6) g/dL Globulin g/dL Albumin/Globulin Ratio Urine Color (YELLOW) Urine Appearance (CLEAR) Urine pH (5.0-6.5) Ur Specific [place] (1.010-1.025) Urine Protein (NEGATIVE) mg/dL Urine Glucose (UA) (NORMAL) mg/dL Urine Ketones (NEGATIVE) mg/dL Urine Occult Blood (NEGATIVE) Urine Nitrite (NEGATIVE) Urine Bilirubin (NEGATIVE) Urine Urobilinogen (NEGATIVE) mg/dL Ur Leukocyte Esterase (NEGATIVE) Urine RBC (0-5) Urine WBC (0-5) Ur Squamous Epith Cells (NS,R,O) Urine Bacteria (NS) Urine Mucus (NS) Med Orders - Current: Current Medications Acetaminophen (Tylenol) 650 mg PO Q4H PRN PRN Reason: Pain (Mild 1-3)/fever Amlodipine Besylate (Norvasc) 2.5 mg PO DAILY [facility] Last Admin: 03/27/19 08:49 Dose: 2.5 mg Aspirin (Halfprin) 81 mg PO DAILY [facility] Last Admin: 03/27/19 08:48 Dose: Not Given Atorvastatin Calcium (Lipitor) 20 mg PO BEDTIME [facility] Last Admin: 03/26/19 21:15 Dose: 20 mg Sodium Chloride (Normal Saline) 1,000 mls @ 999 mls/hr IV ASDIRECTED [facility] Last Admin: 03/26/19 15:30 Dose: 999 mls/hr Sodium Chloride (Normal Saline) 1,000 mls @ 75 mls/hr IV ASDIRECTED [facility] Last Admin: 03/26/19 19:28 Dose: 75 mls/hr Levothyroxine Sodium (Levothyroxine) 75 mcg PO DAILY@0600 [facility] Last Admin: 03/27/19 05:54 Dose: 75 mcg Losartan Potassium (Cozaar) 100 mg PO DAILY [facility] Last Admin: 03/27/19 08:47 Dose: 100 mg Metformin HCl (Glucophage Xr) 500 mg PO DAILY [facility] Last Admin: 03/27/19 08:48 Dose: 500 mg Non-Formulary Medication (Esomeprazole Magnesium [Esomeprazole Magnesium]) 40 mg PO DAILY [facility] Last Admin: 03/27/19 08:48 Dose: 40 mg Ondansetron HCl (Zofran Odt) 4 mg PO Q6H PRN PRN Reason: nausea, able to take PO Sodium Chloride (Saline Flush) 10 ml FLUSH ASDIRECTED PRN PRN Reason: Keep Vein Open Last Admin: 03/26/19 22:46 Dose: 10 ml Ticagrelor (Brilinta) 90 mg PO BID [facility] Last Admin: 03/27/19 08:36 Dose: 90 mg Venlafaxine HCl (Effexor Xr) 75 mg PO DAILY [facility] Last Admin: 03/27/19 08:47 Dose: 75 mg - Exam General: Alert, Oriented HEENT: Pupils Equal, Pupils Reactive, EOMI, Mucous Membr. Moist/[place] Neck: Supple Lungs: Clear to Auscultation, Normal Respiratory Effort Cardiovascular: Regular Rate, Regular Rhythm GI/Abdominal Exam: Normal Bowel Sounds, Soft, Non-Tender, No Organomegaly, No Distention, No Abnormal Bruit, No Mass, Pelvis Stable (Female) Exam: Normal External Exam, Normal Speculum Exam, Normal Bimanual Exam Back Exam: Normal Inspection, Full Range of Motion Extremities: Normal Inspection, Normal Range of Motion, Non-Tender, No Pedal Edema, Normal Capillary Refill Skin: Warm, Dry, Intact Wound/Incisions: Healing Well Neurological: No New Focal Deficit Psy/Mental Status: Alert, Normal Affect, Normal Mood EKG INTERPRETATION EKG Date: 03/27/19 Rhythm: NSR Sepsis Event Note - Evaluation Sepsis Screening Result: No Definite Risk - Focused Exam Vital Signs: Vital Signs Temp Pulse Resp BP BP Pulse Ox 03/27/19 09:00 98.9 F 72 14 167/84 H 99 03/27/19 08:49 167/84 H 03/27/19 08:47 167/84 H 03/27/19 04:00 98.0 F 70 17 165/64 H 99 03/26/19 23:26 98.6 F 70 17 145/85 H 97 Date Exam was Performed: 03/27/19 Time Exam was Performed: 09:31 - Problem List & Annotations (1) Vasovagal syncope SNOMED Code(s): 998988732 Code(s): R55 - SYNCOPE AND COLLAPSE Status: Acute Current Visit: Yes (2) CAD (coronary artery disease) SNOMED Code(s): 34677019 Code(s): I25.10 - ATHSCL HEART DISEASE OF [place] CORONARY ARTERY W/O ANG PCTRS Status: Chronic Current Visit: Yes Qualifiers: Coronary Disease-Associated Artery/Lesion type: [place] artery Associated angina: without angina (3) GUANACO (acute kidney injury) SNOMED Code(s): 82959745, 59084942 Code(s): N17.9 - ACUTE KIDNEY FAILURE, UNSPECIFIED Status: Acute Current Visit: Yes (4) HTN (hypertension) SNOMED Code(s): 78695291 Code(s): I10 - ESSENTIAL (PRIMARY) HYPERTENSION Status: Chronic Current Visit: Yes Qualifiers: Hypertension type: essential hypertension Qualified Code(s): I10 - Essential (primary) hypertension (5) Diabetes type 2, controlled SNOMED Code(s): 09796266, 236798782 Code(s): E11.9 - TYPE 2 DIABETES MELLITUS WITHOUT COMPLICATIONS Status: Acute Current Visit: Yes Qualifiers: Diabetes mellitus fci insulin use: unspecified fci insulin use status (6) MDD (major depressive disorder) SNOMED Code(s): 877929157 Code(s): F32.9 - MAJOR DEPRESSIVE DISORDER, SINGLE EPISODE, UNSPECIFIED Status: Chronic Current Visit: Yes Qualifiers: Major depression recurrence: recurrent Psychotic features: without psychotic features (7) Diarrhea SNOMED Code(s): 37118044 Code(s): R19.7 - DIARRHEA, UNSPECIFIED Status: Acute Current Visit: Yes Qualifiers: Diarrhea type: unspecified type Qualified Code(s): R19.7 - Diarrhea, unspecified - Problem List Review Problem List Initiated/Reviewed/Updated: Yes - My Orders Last 24 Hours: My Active Orders 03/26/19 18:15 Sodium Chloride 0.9% [Normal Saline] 1,000 ml IV ASDIRECTED 03/27/19 05:11 EKG 12 Lead [EK] AM - Plan Plan:: Has improved creatinine. DC home today
== END 2019-03-27 11:09 | disposition home or self-care (01) ==
LOC: FB.ED 13:43 → FB.MS 16:55
PROVIDERS: ADMIT Family Medicine; ATTEND Family Medicine
DX: R55 Syncope and collapse (principal); R19.7 Diarrhea, unspecified; I10 Essential (primary) hypertension; I25.2 Old myocardial infarction; I25.10 Atherosclerotic heart disease of native coronary artery without angina pectoris; N17.9 Acute kidney failure, unspecified; F32.9 Major depressive disorder, single episode, unspecified; M19.90 Unspecified osteoarthritis, unspecified site; E11.9 Type 2 diabetes mellitus without complications; G89.29 Other chronic pain; Z79.899 Other long term (current) drug therapy; Z79.82 Long term (current) use of aspirin; Z79.84 Long term (current) use of oral hypoglycemic drugs; Z90.49 Acquired absence of other specified parts of digestive tract; Z98.890 Other specified postprocedural states; Z87.891 Personal history of nicotine dependence
CPT/HCPCS: 36415; 70450; 71046; 80048; 80053; 81001; 84484; 85025; 85610; 93005; 96360; 96361; 99285; A9270; G0378; J7030

== ENCOUNTER 2019-04-10 13:04 | Emergency (ER) | payer MEDICARE ==
[2019-04-10] MEDS ORDERED: Sodium Chloride 0.9% 10 ML Syringe FLUSH PRN (13:16)
[2019-04-10] MEDS ORDERED: Sodium Chloride 0.9% 500 ML IV ONE (13:28)
--- NOTE | 2019-04-10 13:36 | EDM.PDOC ---
ED HPI GENERAL MEDICAL PROBLEM - General Chief Complaint: General Stated Complaint: DIZZY FALL Time Seen by Provider: 04/10/19 13:30 Source of Information: Reports: Patient History Limitations: Reports: No Limitations - History of Present Illness INITIAL COMMENTS - FREE TEXT/NARRATIVE: Patient felt lightheaded and had near syncopal episodes x 2 today (11:45am and 12:30pm). She was admitted overnight for syncope @[facility] on 04/01/19, but no etiology was found. 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 on 02/17/19. She complains of mid back pain radiating to abdomen x 1 year, work up was negative. Patient was diagnosed with a UTI on 04/07/19 and prescribed Bactrim (UCx: 25-50k Ecoli sensitive to Bactrim). Denies melena, hematochezia, or N/V/D. Onset: Today mid abd and mid back Pain Score (Numeric/FACES): 9 - Related Data Allergies Allergy/AdvReac Type Severity Reaction Status Date / Time No Known Allergies Allergy Verified 03/26/19 14:30 Home Meds: Home Meds Aspirin [Halfprin] 81 mg PO DAILY 03/26/19 [History] Esomeprazole Magnesium 40 mg PO DAILY 03/26/19 [History] Latanoprost 1 drop EYEBOTH BEDTIME 03/26/19 [History] Levothyroxine Sodium [Synthroid] 75 mcg PO ACBREAKFAST 03/26/19 [History] Losartan Potassium 100 mg PO DAILY 03/26/19 [History] Prevagen 1 cap PO DAILY 03/26/19 [History] Ticagrelor [Brilinta] 90 mg PO BID 03/26/19 [History] Venlafaxine HCl [Venlafaxine ER] 75 mg PO DAILY 03/26/19 [History] amLODIPine [Norvasc] 2.5 mg PO DAILY 03/26/19 [History] atorvaSTATin [Lipitor] 20 mg PO BEDTIME 03/26/19 [History] metFORMIN HCl [Metformin HCl ER] 500 mg PO DAILY 03/26/19 [History] Sulfamethoxazole/Trimethoprim [Sulfamethoxazole-Tmp Ds Tablet] 1 each PO DAILY 04/10/19 [History] Past Medical History HEENT History: Reports: Cataract, Impaired Vision Cardiovascular History: Reports: Hypertension, ME, Stents Genitourinary History: Reports: Urinary Incontinence 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: Musculoskeletal History: Reports: Arthritis, Back Pain, Chronic Psychiatric History: Reports: Depression Endocrine/Metabolic History: Reports: Diabetes, Type II - Past Surgical History HEENT Surgical History: Reports: Oral Surgery GI Surgical History: Reports: Appendectomy, Cholecystectomy, Colonoscopy, EGD Female Surgical History: Reports: Hysterectomy, Ureteral Stent Musculoskeletal Surgical History: Reports: Carpal Tunnel, Hip Replacement, Other (See Below) Other Musculoskeletal Surgeries/Procedures:: Neck surgery, back surgery Social & Family History - Family History Neurological: Reports: Cerebral Aneurysms - Tobacco Use Smoking Status *Q: Former Smoker - Caffeine Use Caffeine Use: Reports: Soda - Alcohol Use Alcohol Use History: No ED ROS GENERAL - Review of Systems Review Of Systems: Comprehensive ROS is negative, except as noted in HPI. Musculoskeletal: Reports: Neck Pain ED EXAM, DIZZINESS - Physical Exam Exam: See Below Exam Limited By: No Limitations General Appearance: Alert, WD/WN, No Apparent Distress Eye Exam: Bilateral Eye: EOMI, PERRL Ears: Normal External Exam Nose: Normal Inspection Throat/Mouth: No Airway Compromise Head Exam: Atraumatic, Normocephalic Neck: Full Range of Motion, Tender Midline (mild) Respiratory/Chest: No Respiratory Distress, Lungs Clear, Normal Breath Sounds Cardiovascular: Regular Rate, Rhythm, No Murmur GI/Abdominal: Soft, No Distention, Tender (mild epigastric) Neurological: Alert, No Motor/Sensory Deficits Extremities: Normal Inspection, Normal Range of Motion, Non-Tender Skin Exam: Warm, Dry, Intact EKG INTERPRETATION EKG Date: 04/10/19 Time: 13:22 Rhythm: NSR Rate (Beats/Min): 89 Robert Lee: Normal P-Wave: Present QRS: Other (IRBBB and LPFB) Comparison: No Change (03/26/19) Course - Vital Signs Last Recorded V/S: Last Vital Signs Temp 36.4 C 04/10/19 13:04 Pulse 86 04/10/19 13:04 Resp 17 04/10/19 13:04 BP 158/64 H 04/10/19 13:04 Pulse Ox 98 04/10/19 13:04 Orthostatic Blood Pressure [ 117/50 Standing] Orthostatic Blood Pressure [ 131/59 Sitting] Orthostatic Blood Pressure [ 145/61 Supine] Orthostatic HR Standing 102 Sitting 97 Supine 84 - Orders/Labs/Meds Orders: Active Orders 24 hr Category Date Time Status EKG Documentation Completion [RC] ASDIRECTED Care 04/10/19 13:15 Active C-Spine [Cervical Spine wo Cont] [CT] Stat Exams 04/10/19 14:42 Taken CTA Abd Pelv w Cont [CT] Stat Exams 04/10/19 14:42 Taken Head wo Cont [CT] Stat Exams 04/10/19 14:42 Taken CULTURE BLOOD [BC] Urgent Lab 04/10/19 14:40 Received CULTURE BLOOD [BC] Urgent Lab 04/10/19 14:48 Received Sodium Chloride 0.9% [Normal Saline] 1,000 ml Med 04/10/19 14:30 Active IV ASDIRECTED Sodium Chloride 0.9% [Saline Flush] Med 04/10/19 13:16 Active 10 ml FLUSH ASDIRECTED PRN Blood Culture x2 Reflex Set [OM.PC] Urgent Oth 04/10/19 14:17 Ordered Saline Lock Insert [OM.PC] Routine Oth 04/10/19 13:16 Ordered EKG 12 Lead [EK] Stat Ther 04/10/19 13:15 Ordered Medication Orders Sodium Chloride (Normal Saline) 1,000 mls @ 100 mls/hr IV ASDIRECTED ANNA Last Admin: 04/10/19 16:11 Dose: 100 mls/hr Sodium Chloride (Saline Flush) 10 ml FLUSH ASDIRECTED PRN PRN Reason: Keep Vein Open Last Admin: 04/10/19 14:10 Dose: 10 ml Labs: Laboratory Tests 04/10/19 04/10/19 04/10/19 Range/Units 13:57 13:57 13:57 WBC 14.1 H (4.5-12.0) X10-3/uL RBC 4.68 (3.23-5.20) x10(6)uL Hgb 12.2 (11.5-15.5) g/dL Hct 37.4 (30.0-51.3) % MCV 80.0 (80-96) fL MCH 26.0 L (27.7-33.6) pg MCHC 32.5 (32.2-35.4) g/dL RDW 16.4 H (11.5-15.5) % Plt Count 445 H (125-369) X10(3)uL MPV 7.9 (7.4-10.4) fL Add Manual Diff Yes Neutrophils % (Manual) 81 (46-82) % Band Neutrophils % 3 (0-6) % Lymphocytes % (Manual) 10 L (13-37) % Monocytes % (Manual) 5 (4-12) % Eosinophils % (Manual) 1 (0-5) % PT 10.2 (9.0-11.1) sec INR 1.05 (1.00-1.24) APTT 22.7 L (24.4-33.2) SECONDS Sodium 139 (135-145) mmol/L Potassium 3.8 (3.5-5.3) mmol/L Chloride 101 D (100-110) mmol/L Carbon Dioxide 23 (21-32) mmol/L BUN 14 (7-18) mg/dL Creatinine 1.5 H (0.55-1.02) mg/dL Est Cr Clr Drug Dosing TNP Estimated GFR (MDRD) 34 L (>60) BUN/Creatinine Ratio 9.3 (9-20) Glucose 126 H (80-116) mg/dL Lactic Acid (0.4-2.0) mmol/L Calcium 9.1 (8.6-10.2) mg/dL Magnesium (1.8-2.5) mg/dL Total Bilirubin 0.6 (0.1-1.3) mg/dL AST 20 D (5-25) IU/L ALT 25 D (12-36) U/L Alkaline Phosphatase 82 (56-112) IU/L Troponin I (4.0-60.3) pg/mL Total Protein 7.3 (6.0-8.0) g/dL Albumin 3.4 (3.2-4.6) g/dL Globulin 3.9 g/dL Albumin/Globulin Ratio 0.9 Lipase (73-393) U/L Urine Color (YELLOW) Urine Appearance (CLEAR) Urine pH (5.0-6.5) Ur Specific [place] (1.010-1.025) Urine Protein (NEGATIVE) mg/dL Urine Glucose (UA) (NORMAL) mg/dL Urine Ketones (NEGATIVE) mg/dL Urine Occult Blood (NEGATIVE) Urine Nitrite (NEGATIVE) Urine Bilirubin (NEGATIVE) Urine Urobilinogen (NEGATIVE) mg/dL Ur Leukocyte Esterase (NEGATIVE) Urine RBC (0-5) Urine WBC (0-5) Ur Squamous Epith Cells (NS,R,O) Urine Bacteria (NS) 04/10/19 04/10/19 04/10/19 Range/Units 13:57 13:57 13:57 WBC (4.5-12.0) X10-3/uL RBC (3.23-5.20) x10(6)uL Hgb (11.5-15.5) g/dL Hct (30.0-51.3) % MCV (80-96) fL MCH (27.7-33.6) pg MCHC (32.2-35.4) g/dL RDW (11.5-15.5) % Plt Count (125-369) X10(3)uL MPV (7.4-10.4) fL Add Manual Diff Neutrophils % (Manual) (46-82) % Band Neutrophils % (0-6) % Lymphocytes % (Manual) (13-37) % Monocytes % (Manual) (4-12) % Eosinophils % (Manual) (0-5) % PT (9.0-11.1) sec INR (1.00-1.24) APTT (24.4-33.2) SECONDS Sodium (135-145) mmol/L Potassium (3.5-5.3) mmol/L Chloride (100-110) mmol/L Carbon Dioxide (21-32) mmol/L BUN (7-18) mg/dL Creatinine (0.55-1.02) mg/dL Est Cr Clr Drug Dosing Estimated GFR (MDRD) (>60) BUN/Creatinine Ratio (9-20) Glucose (80-116) mg/dL Lactic Acid (0.4-2.0) mmol/L Calcium (8.6-10.2) mg/dL Magnesium 2.0 (1.8-2.5) mg/dL Total Bilirubin (0.1-1.3) mg/dL AST (5-25) IU/L ALT (12-36) U/L Alkaline Phosphatase (56-112) IU/L Troponin I 7.7 (4.0-60.3) pg/mL Total Protein (6.0-8.0) g/dL Albumin (3.2-4.6) g/dL Globulin g/dL Albumin/Globulin Ratio Lipase 151 (73-393) U/L Urine Color (YELLOW) Urine Appearance (CLEAR) Urine pH (5.0-6.5) Ur Specific [place] (1.010-1.025) Urine Protein (NEGATIVE) mg/dL Urine Glucose (UA) (NORMAL) mg/dL Urine Ketones (NEGATIVE) mg/dL Urine Occult Blood (NEGATIVE) Urine Nitrite (NEGATIVE) Urine Bilirubin (NEGATIVE) Urine Urobilinogen (NEGATIVE) mg/dL Ur Leukocyte Esterase (NEGATIVE) Urine RBC (0-5) Urine WBC (0-5) Ur Squamous Epith Cells (NS,R,O) Urine Bacteria (NS) 04/10/19 04/10/19 04/10/19 Range/Units 14:48 15:23 16:30 WBC (4.5-12.0) X10-3/uL RBC (3.23-5.20) x10(6)uL Hgb (11.5-15.5) g/dL Hct (30.0-51.3) % MCV (80-96) fL MCH (27.7-33.6) pg MCHC (32.2-35.4) g/dL RDW (11.5-15.5) % Plt Count (125-369) X10(3)uL MPV (7.4-10.4) fL Add Manual Diff Neutrophils % (Manual) (46-82) % Band Neutrophils % (0-6) % Lymphocytes % (Manual) (13-37) % Monocytes % (Manual) (4-12) % Eosinophils % (Manual) (0-5) % PT (9.0-11.1) sec INR (1.00-1.24) APTT (24.4-33.2) SECONDS Sodium (135-145) mmol/L Potassium (3.5-5.3) mmol/L Chloride (100-110) mmol/L Carbon Dioxide (21-32) mmol/L BUN (7-18) mg/dL Creatinine (0.55-1.02) mg/dL Est Cr Clr Drug Dosing Estimated GFR (MDRD) (>60) BUN/Creatinine Ratio (9-20) Glucose (80-116) mg/dL Lactic Acid 3.1 H* 2.5 H* (0.4-2.0) mmol/L Calcium (8.6-10.2) mg/dL Magnesium (1.8-2.5) mg/dL Total Bilirubin (0.1-1.3) mg/dL AST (5-25) IU/L ALT (12-36) U/L Alkaline Phosphatase (56-112) IU/L Troponin I (4.0-60.3) pg/mL Total Protein (6.0-8.0) g/dL Albumin (3.2-4.6) g/dL Globulin g/dL Albumin/Globulin Ratio Lipase (73-393) U/L Urine Color Yellow (YELLOW) Urine Appearance Clear (CLEAR) Urine pH 5.0 (5.0-6.5) Ur Specific [place] 1.015 (1.010-1.025) Urine Protein Negative (NEGATIVE) mg/dL Urine Glucose (UA) Normal (NORMAL) mg/dL Urine Ketones Negative (NEGATIVE) mg/dL Urine Occult Blood Negative (NEGATIVE) Urine Nitrite Negative (NEGATIVE) Urine Bilirubin Negative (NEGATIVE) Urine Urobilinogen Normal (NEGATIVE) mg/dL Ur Leukocyte Esterase Negative (NEGATIVE) Urine RBC Not seen (0-5) Urine WBC 0-5 (0-5) Ur Squamous Epith Cells Rare (NS,R,O) Urine Bacteria Rare H (NS) 04/10/19 Range/Units 16:30 WBC (4.5-12.0) X10-3/uL RBC (3.23-5.20) x10(6)uL Hgb (11.5-15.5) g/dL Hct (30.0-51.3) % MCV (80-96) fL MCH (27.7-33.6) pg MCHC (32.2-35.4) g/dL RDW (11.5-15.5) % Plt Count (125-369) X10(3)uL MPV (7.4-10.4) fL Add Manual Diff Neutrophils % (Manual) (46-82) % Band Neutrophils % (0-6) % Lymphocytes % (Manual) (13-37) % Monocytes % (Manual) (4-12) % Eosinophils % (Manual) (0-5) % PT (9.0-11.1) sec INR (1.00-1.24) APTT (24.4-33.2) SECONDS Sodium (135-145) mmol/L Potassium (3.5-5.3) mmol/L Chloride (100-110) mmol/L Carbon Dioxide (21-32) mmol/L BUN (7-18) mg/dL Creatinine (0.55-1.02) mg/dL Est Cr Clr Drug Dosing Estimated GFR (MDRD) (>60) BUN/Creatinine Ratio (9-20) Glucose (80-116) mg/dL Lactic Acid (0.4-2.0) mmol/L Calcium (8.6-10.2) mg/dL Magnesium (1.8-2.5) mg/dL Total Bilirubin (0.1-1.3) mg/dL AST (5-25) IU/L ALT (12-36) U/L Alkaline Phosphatase (56-112) IU/L Troponin I 9.7 (4.0-60.3) pg/mL Total Protein (6.0-8.0) g/dL Albumin (3.2-4.6) g/dL Globulin g/dL Albumin/Globulin Ratio Lipase (73-393) U/L Urine Color (YELLOW) Urine Appearance (CLEAR) Urine pH (5.0-6.5) Ur Specific [place] (1.010-1.025) Urine Protein (NEGATIVE) mg/dL Urine Glucose (UA) (NORMAL) mg/dL Urine Ketones (NEGATIVE) mg/dL Urine Occult Blood (NEGATIVE) Urine Nitrite (NEGATIVE) Urine Bilirubin (NEGATIVE) Urine Urobilinogen (NEGATIVE) mg/dL Ur Leukocyte Esterase (NEGATIVE) Urine RBC (0-5) Urine WBC (0-5) Ur Squamous Epith Cells (NS,R,O) Urine Bacteria (NS) Meds: Medications Generic Name Dose Route Start Last Admin Trade Name Freq PRN Reason Stop Dose Admin Sodium Chloride 1,000 mls @ 100 mls/hr 04/10/19 14:30 04/10/19 16:11 Normal Saline IV 100 mls/hr ASDIRECTED ANNA Administration Sodium Chloride 10 ml 04/10/19 13:16 04/10/19 14:10 Saline Flush FLUSH 10 ml ASDIRECTED PRN Administration Keep Vein Open Discontinued Medications Generic Name Dose Route Start Last Admin Trade Name Freq PRN Reason Stop Dose Admin Ceftriaxone Sodium 2 gm 04/10/19 16:56 04/10/19 17:03 Rocephin IVPUSH 04/10/19 16:57 2 gm ONETIME ONE Administration Sodium Chloride 500 mls @ 500 mls/hr 04/10/19 13:28 04/10/19 14:10 Normal Saline IV 04/10/19 14:27 500 mls/hr .BOLUS ONE Administration Sodium Chloride 1,000 mls @ 999 mls/hr 04/10/19 15:14 04/10/19 15:10 Normal Saline IV 04/10/19 16:14 999 mls/hr .BOLUS ONE Administration Iopamidol 100 ml 04/10/19 14:47 04/10/19 15:20 Isovue-370 (76%) IV 04/10/19 14:48 99 ml ONETIME ONE Administration - Radiology Interpretation Free Text/Narrative:: CTA Abd/Pelvis: Normal appearance of the abdominal aorta and its branches, with no sign of stenosis, aneurysm, or dissection. CT Head w/o contrast: Mild right maxillary sinusitis. Mild changes of chronic small vessel ischemia. CT C-spine w/o contrast: No sign of acute osseous injury ot the cervical spine. - Re-Assessments/Exams Free Text/Narrative Re-Assessment/Exam: 04/10/19 16:00 Dr. Fofana recommends transfer for HLOC. 04/10/19 16:41 Patient developed numbness to her tongue @ 30 minutes ago, this persists. CN2- 12 otherwise intact, no focal weakness.. 04/10/19 17:09 Dr. Rios accepts patient for transfer to [facility]. Will transport by ALS ground. Departure - Departure Time of Disposition: 17:12 Disposition: DC/Tfer to Acute Hospital 02 Condition: Fair Clinical Impression: Syncope, near, GUANACO (acute kidney injury), Mid back pain Abdominal pain Qualifiers: Abdominal location: upper abdomen, unspecified Qualified Code(s): R10.10 - Upper abdominal pain, unspecified - Discharge Information Referrals: Janene King MD [Primary Care Provider] - Forms: ED Department Discharge Sepsis Event Note - Focused Exam Vital Signs: Vital Signs Temp Pulse Resp BP Pulse Ox 04/10/19 13:04 36.4 C 86 17 158/64 H 98 Date Exam was Performed: 04/10/19 Time Exam was Performed: 17:09 - My Orders Last 24 Hours: My Active Orders 04/10/19 13:15 EKG Documentation Completion [RC] ASDIRECTED EKG 12 Lead [EK] Stat 04/10/19 13:16 Sodium Chloride 0.9% [Saline Flush] 10 ml FLUSH ASDIRECTED PRN Saline Lock Insert [OM.PC] Routine 04/10/19 14:17 Blood Culture x2 Reflex Set [OM.PC] Urgent 04/10/19 14:30 Sodium Chloride 0.9% [Normal Saline] 1,000 ml IV ASDIRECTED 04/10/19 14:40 CULTURE BLOOD [BC] Urgent 04/10/19 14:42 C-Spine [Cervical Spine wo Cont] [CT] Stat CTA Abd Pelv w Cont [CT] Stat Head wo Cont [CT] Stat 04/10/19 14:48 CULTURE BLOOD [BC] Urgent - Assessment/Plan Last 24 Hours: My Active Orders 04/10/19 13:15 EKG Documentation Completion [RC] ASDIRECTED EKG 12 Lead [EK] Stat 04/10/19 13:16 Sodium Chloride 0.9% [Saline Flush] 10 ml FLUSH ASDIRECTED PRN Saline Lock Insert [OM.PC] Routine 04/10/19 14:17 Blood Culture x2 Reflex Set [OM.PC] Urgent 04/10/19 14:30 Sodium Chloride 0.9% [Normal Saline] 1,000 ml IV ASDIRECTED 04/10/19 14:40 CULTURE BLOOD [BC] Urgent 04/10/19 14:42 C-Spine [Cervical Spine wo Cont] [CT] Stat CTA Abd Pelv w Cont [CT] Stat Head wo Cont [CT] Stat 04/10/19 14:48 CULTURE BLOOD [BC] Urgent
[2019-04-10] MEDS ORDERED: Sodium Chloride 0.9% 1,000 ML IV SCH (14:30)
[2019-04-10] MEDS ORDERED: Iopamidol 755 Mg/ML 100 ML Bottle IV ONE (14:47)
[2019-04-10] MEDS ORDERED: Sodium Chloride 0.9% 1,000 ML IV ONE (15:14)
[2019-04-10] MEDS ORDERED: cefTRIAXone 2 GM Vial IVPUSH ONE (16:56)
== END 2019-04-10 18:01 ==
LOC: FB.ED 13:04
DX: R55 Syncope and collapse (principal); N17.9 Acute kidney failure, unspecified; R10.10 Upper abdominal pain, unspecified; I10 Essential (primary) hypertension; I25.2 Old myocardial infarction; Z79.82 Long term (current) use of aspirin
CPT/HCPCS: 36415; 70450; 72125; 74174; 80053; 81001; 83605; 83690; 83735; 84484; 85025; 85610; 85730; 87040; 93005; 96361; 96374; 99285; J0696; J7030; J7040; Q9967

== ENCOUNTER 2020-06-15 10:51 | Emergency (ER) | payer MEDICARE ==
[2020-06-15] MEDS ORDERED: Acetaminophen 500 MG Tab PO ONE (11:37)
[2020-06-15] MEDS ORDERED: Sodium Chloride 0.9% 1,000 ML IV ONE (11:37)
--- NOTE | 2020-06-15 11:43 | EDM.PDOC ---
ED HPI GENERAL MEDICAL PROBLEM - General Time Seen by Provider: 06/15/20 11:05 Source of Information: Reports: Patient, Family - History of Present Illness INITIAL COMMENTS - FREE TEXT/NARRATIVE: c/o "feeling terrible" pt went to [facility] yesterday for Reclast IV infusion and vit B12 injection did not feel well when she got home, did not eat supper per pt altho dtr Katherine says she has a poor memory went to bed at 10p and up at 7a, told me she slept well, told dtr she did not pt said she said in chair, was "on the floor" altho does not explain what she meant dtr called at 9:50a dtr said paramedics helped her to her feet, that she was able to stand also c/o neck pain altho moves neck easily c/o BLANCAS but is vague c/o dizzy to HANH Reese, no c/o dizzy to me c/o "hurting all over" at one point but then not repeated when asked for clarification head CT without was neg one yr ago has had memory problems SH: lives alone, dtr Katherine here, son here PMH: cardiac stent 03/01, 6 trops in 04/01 all neg, pt "collapsed in my arms" per dtr in early 04/01 Headache Pain Score (Numeric/FACES): 8 - Related Data Allergies Allergy/AdvReac Type Severity Reaction Status Date / Time No Known Allergies Allergy Verified 03/26/19 14:30 Home Meds: Home Meds Aspirin [Halfprin] 81 mg PO DAILY 03/26/19 [History] Esomeprazole Magnesium 40 mg PO ACBREAKFAST 03/26/19 [History] Latanoprost 1 drop EYEBOTH BEDTIME 03/26/19 [History] Levothyroxine Sodium [Synthroid] 75 mcg PO ACBREAKFAST 03/26/19 [History] Losartan Potassium 100 mg PO DAILY 03/26/19 [History] Prevagen 1 cap PO DAILY 03/26/19 [History] Ticagrelor [Brilinta] 90 mg PO BID 03/26/19 [History] Venlafaxine HCl [Venlafaxine ER] 75 mg PO DAILY 03/26/19 [History] amLODIPine [Norvasc] 5 mg PO DAILY 02/14/20 [History] atorvaSTATin [Lipitor] 30 mg PO BEDTIME 03/26/19 [History] metFORMIN HCl [Metformin HCl ER] 500 mg PO DAILY 03/26/19 [History] Sulfamethoxazole/Trimethoprim [Sulfamethoxazole-Tmp Ds Tablet] 1 each PO DAILY 04/10/19 [History] Amoxicillin/Clavulanate K [Augmentin 500-125 MG] 1 tab PO Q8H #14 tab 06/15/20 [Rx] Cetirizine HCl [Allergy Relief] 10 mg PO ASDIRECTED PRN 06/15/20 [History] Oxybutynin Chloride [Oxybutynin Chloride ER] 10 mg PO DAILY 06/15/20 [History] Potassium Chloride 10 meq PO ASDIRECTED #60 tablet.er 06/15/20 [Rx] amLODIPine [Norvasc] 5 mg PO DAILY 06/15/20 [History] hydroCHLOROthiazide [Hydrochlorothiazide] 25 mg PO DAILY 06/15/20 [History] Past Medical History HEENT History: Reports: Cataract, Impaired Vision Cardiovascular History: Reports: Hypertension, [place], Stents Genitourinary History: Reports: 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: Musculoskeletal History: Reports: Arthritis, Back Pain, Chronic Psychiatric History: Reports: Depression Endocrine/Metabolic History: Reports: Diabetes, Type II - Past Surgical History HEENT Surgical History: Reports: Oral Surgery GI Surgical History: Reports: Appendectomy, Cholecystectomy, Colonoscopy, EGD Female Surgical History: Reports: Hysterectomy, Ureteral Stent Musculoskeletal Surgical History: Reports: Carpal Tunnel, Hip Replacement, Other (See Below) Other Musculoskeletal Surgeries/Procedures:: Neck surgery, back surgery Social & Family History - Family History Neurological: Reports: Cerebral Aneurysms - Caffeine Use Caffeine Use: Reports: Soda ED ROS GENERAL - Review of Systems Review Of Systems: See Below Constitutional: Reports: Weakness. Denies: Diaphoresis, Decreased Appetite HEENT: Reports: No Symptoms Respiratory: Reports: No Symptoms. Denies: Shortness of Breath Cardiovascular: Reports: No Symptoms. Denies: Chest Pain Endocrine: Reports: No Symptoms GI/Abdominal: Reports: Nausea. Denies: Vomiting : Reports: No Symptoms Musculoskeletal: Reports: Muscle Pain Skin: Reports: No Symptoms Neurological: Reports: Headache Psychiatric: Reports: No Symptoms Hematologic/Lymphatic: Reports: No Symptoms Immunologic: Reports: No Symptoms ED EXAM, GENERAL - Physical Exam Exam: See Below General Appearance: Alert, WD/WN, No Apparent Distress, Other (neatly dressed, alert, talkative, nonill, very poor memory, vs wnl except for temp 37.8, PO 100% on RA subsequently) Eye Exam: Bilateral Eye: EOMI, PERRL Nose: Normal Inspection Throat/Mouth: Normal Inspection, Normal Lips, Normal Teeth, Normal Voice, No Airway Compromise Head: Atraumatic, Normocephalic Neck: Normal Inspection, Supple, Non-Tender, Full Range of Motion. No: Lymphadenopathy (R), Lymphadenopathy (L) Respiratory/Chest: No Respiratory Distress, Lungs Clear, Normal Breath Sounds, No Accessory Muscle Use Cardiovascular: Regular Rate, Rhythm, No Edema, Other (2/6 RAMIREZ at LSB) GI/Abdominal: Soft, Non-Tender, No Organomegaly, No Distention Back Exam: Normal Inspection, Full Range of Motion. No: CVA Tenderness (R), CVA Tenderness (L) Extremities: Normal Inspection, Normal Range of Motion, No Pedal Edema, Normal Capillary Refill, Other (no pretib edema, dec'd turgor UEs b/l) Neurological: Alert, CN II-XII Intact, No Motor/Sensory Deficits Skin Exam: Warm, Dry, Intact, Normal Color, No Rash Lymphatic: No Adenopathy Course - Vital Signs Last Recorded V/S: Last Vital Signs Temp 38.0 C 06/15/20 10:55 Pulse 83 06/15/20 10:55 Resp 21 H 06/15/20 10:55 BP 143/56 H 06/15/20 10:55 Pulse Ox 97 06/15/20 10:55 Orthostatic Blood Pressure [ 133/47 Standing] Orthostatic Blood Pressure [ 105/84 Sitting] Orthostatic Blood Pressure [ 134/51 Supine] - Orders/Labs/Meds Orders: Active Orders 24 hr Category Date Time Status Orthostatic Vital Signs [RC] ASDIRECTED Care 06/15/20 11:36 Active CULTURE URINE [RM] Stat Lab 06/15/20 12:20 Received Labs: Laboratory Tests 06/15/20 06/15/20 06/15/20 Range/Units 11:45 11:45 11:45 WBC 11.5 H (3.0-10.3) x10-3/uL RBC 4.39 (3.60-5.20) x10(6)uL Hgb 13.3 (11.4-15.5) g/dL Hct 39.3 (34.2-48.2) % MCV 89.4 (76.7-100.5) fL MCH 30.3 (23.9-33.9) pg MCHC 33.9 (31.9-34.8) g/dL RDW 12.5 (12.3-16.5) % Plt Count 295 (151-488) x10(3)uL MPV 8.2 (7.1-12.4) fL Add Manual Diff Yes Neutrophils % (Manual) 92 H (46-82) % Lymphocytes % (Manual) 4 L (13-37) % Monocytes % (Manual) 4 (4-12) % ESR (0-20) mm/hr Sodium 136 (135-145) mmol/L Potassium 2.6 L* D (3.5-5.3) mmol/L Chloride 93 L D (100-110) mmol/L Carbon Dioxide 31 (21-32) mmol/L BUN 10 (7-18) mg/dL Creatinine 1.2 H (0.55-1.02) mg/dL Est Cr Clr Drug Dosing 34.98 mL/min Estimated GFR (MDRD) 44 L (>60) BUN/Creatinine Ratio 8.3 L (9-20) Glucose 117 H (80-116) mg/dL Calcium 8.2 L (8.6-10.2) mg/dL Magnesium (1.8-2.5) mg/dL Total Bilirubin 0.4 (0.1-1.3) mg/dL AST 18 (5-25) IU/L ALT 27 (12-36) U/L Alkaline Phosphatase 55 L (56-112) IU/L Troponin I 8.6 (4.0-60.3) pg/mL C-Reactive Protein 1.8 H (0.5-0.9) mg/dL Total Protein 6.7 (6.0-8.0) g/dL Albumin 3.1 L (3.2-4.6) g/dL Globulin 3.6 g/dL Albumin/Globulin Ratio 0.9 TSH, Ultra Sensitive (0.36-3.74) IU/mL Urine Color (YELLOW) Urine Appearance (CLEAR) Urine pH (5.0-6.5) Ur Specific [place] (1.010-1.025) Urine Protein (NEGATIVE) mg/dL Urine Glucose (UA) (NORMAL) mg/dL Urine Ketones (NEGATIVE) mg/dL Urine Occult Blood (NEGATIVE) Urine Nitrite (NEGATIVE) Urine Bilirubin (NEGATIVE) Urine Urobilinogen (NEGATIVE) mg/dL Ur Leukocyte Esterase (NEGATIVE) Urine RBC (0-5) Urine WBC (0-5) Ur Squamous Epith Cells (NS,R,O) Urine Bacteria (NS) 06/15/20 06/15/20 06/15/20 Range/Units 11:45 11:45 11:45 WBC (3.0-10.3) x10-3/uL RBC (3.60-5.20) x10(6)uL Hgb (11.4-15.5) g/dL Hct (34.2-48.2) % MCV (76.7-100.5) fL MCH (23.9-33.9) pg MCHC (31.9-34.8) g/dL RDW (12.3-16.5) % Plt Count (151-488) x10(3)uL MPV (7.1-12.4) fL Add Manual Diff Neutrophils % (Manual) (46-82) % Lymphocytes % (Manual) (13-37) % Monocytes % (Manual) (4-12) % ESR 43 H (0-20) mm/hr Sodium (135-145) mmol/L Potassium (3.5-5.3) mmol/L Chloride (100-110) mmol/L Carbon Dioxide (21-32) mmol/L BUN (7-18) mg/dL Creatinine (0.55-1.02) mg/dL Est Cr Clr Drug Dosing mL/min Estimated GFR (MDRD) (>60) BUN/Creatinine Ratio (9-20) Glucose (80-116) mg/dL Calcium (8.6-10.2) mg/dL Magnesium 1.8 (1.8-2.5) mg/dL Total Bilirubin (0.1-1.3) mg/dL AST (5-25) IU/L ALT (12-36) U/L Alkaline Phosphatase (56-112) IU/L Troponin I (4.0-60.3) pg/mL C-Reactive Protein (0.5-0.9) mg/dL Total Protein (6.0-8.0) g/dL Albumin (3.2-4.6) g/dL Globulin g/dL Albumin/Globulin Ratio TSH, Ultra Sensitive 1.17 (0.36-3.74) IU/mL Urine Color (YELLOW) Urine Appearance (CLEAR) Urine pH (5.0-6.5) Ur Specific [place] (1.010-1.025) Urine Protein (NEGATIVE) mg/dL Urine Glucose (UA) (NORMAL) mg/dL Urine Ketones (NEGATIVE) mg/dL Urine Occult Blood (NEGATIVE) Urine Nitrite (NEGATIVE) Urine Bilirubin (NEGATIVE) Urine Urobilinogen (NEGATIVE) mg/dL Ur Leukocyte Esterase (NEGATIVE) Urine RBC (0-5) Urine WBC (0-5) Ur Squamous Epith Cells (NS,R,O) Urine Bacteria (NS) 06/15/20 Range/Units 12:24 WBC (3.0-10.3) x10-3/uL RBC (3.60-5.20) x10(6)uL Hgb (11.4-15.5) g/dL Hct (34.2-48.2) % MCV (76.7-100.5) fL MCH (23.9-33.9) pg MCHC (31.9-34.8) g/dL RDW (12.3-16.5) % Plt Count (151-488) x10(3)uL MPV (7.1-12.4) fL Add Manual Diff Neutrophils % (Manual) (46-82) % Lymphocytes % (Manual) (13-37) % Monocytes % (Manual) (4-12) % ESR (0-20) mm/hr Sodium (135-145) mmol/L Potassium (3.5-5.3) mmol/L Chloride (100-110) mmol/L Carbon Dioxide (21-32) mmol/L BUN (7-18) mg/dL Creatinine (0.55-1.02) mg/dL Est Cr Clr Drug Dosing mL/min Estimated GFR (MDRD) (>60) BUN/Creatinine Ratio (9-20) Glucose (80-116) mg/dL Calcium (8.6-10.2) mg/dL Magnesium (1.8-2.5) mg/dL Total Bilirubin (0.1-1.3) mg/dL AST (5-25) IU/L ALT (12-36) U/L Alkaline Phosphatase (56-112) IU/L Troponin I (4.0-60.3) pg/mL C-Reactive Protein (0.5-0.9) mg/dL Total Protein (6.0-8.0) g/dL Albumin (3.2-4.6) g/dL Globulin g/dL Albumin/Globulin Ratio TSH, Ultra Sensitive (0.36-3.74) IU/mL Urine Color Yellow (YELLOW) Urine Appearance Clear (CLEAR) Urine pH 5.0 (5.0-6.5) Ur Specific [place] 1.015 (1.010-1.025) Urine Protein Negative (NEGATIVE) mg/dL Urine Glucose (UA) Normal (NORMAL) mg/dL Urine Ketones Negative (NEGATIVE) mg/dL Urine Occult Blood Negative (NEGATIVE) Urine Nitrite Negative (NEGATIVE) Urine Bilirubin Negative (NEGATIVE) Urine Urobilinogen Normal (NEGATIVE) mg/dL Ur Leukocyte Esterase Moderate H (NEGATIVE) Urine RBC 0-5 (0-5) Urine WBC 5-10 H (0-5) Ur Squamous Epith Cells Few H (NS,R,O) Urine Bacteria Moderate H (NS) Meds: Medications Discontinued Medications Generic Name Dose Route Start Last Admin Trade Name Arcadioq PRN Reason Stop Dose Admin Acetaminophen 1,000 mg 06/15/20 11:37 06/15/20 13:13 Acetaminophen 500 Mg Tab PO 06/15/20 11:38 1,000 mg ONETIME ONE Administration Ceftriaxone Sodium 1 gm 06/15/20 13:36 06/15/20 13:45 Ceftriaxone 1 Gm Vial IVPUSH 06/15/20 13:37 1 gm ONETIME ONE Administration Sodium Chloride 1,000 mls @ 999 mls/hr 06/15/20 11:37 06/15/20 12:59 Normal Saline IV 06/15/20 12:37 999 mls/hr .BOLUS ONE Administration Potassium Chloride 40 meq 06/15/20 13:36 06/15/20 13:44 Potassium Chloride 20 Meq Tab.Er PO 06/15/20 13:37 40 meq ONETIME ONE Administration - Re-Assessments/Exams Free Text/Narrative Re-Assessment/Exam: 06/15/20 14:14 CxR 2v is neg per Dr Winston head CT without contrast with no acute changes in past yr mild increase wbc/segs/esr/crp c/w UTI no clinical evidence of other acute infection, no clinical evidence of reaction to Reclast or vit B12 pt able to ambulate without difficulty and without assist memory problems continue to be a concern, unclear how long she will be able to live alone at home before needing a different living arrangement SG 1.015, no ketones in urine Departure - Departure Time of Disposition: 14:03 Disposition: Home, Self-Care 01 Condition: Fair Clinical Impression: Urinary tract infection, Hypokalemia, Weakness - Discharge Information Prescriptions: Amoxicillin/Clavulanate K [Augmentin 500-125 MG] 1 tab PO Q8H #14 tab Potassium Chloride 10 meq PO ASDIRECTED #60 tablet.er Instructions: Urinary Tract Infection, Adult Referrals: Janene King MD [Primary Care Provider] - Additional Instructions: Rest for the next 1-2 days. Increase fluids. For infection, take amoxicillin-clavulanate 500-125 mg 1 tab 2 times a day for 7 days. To replace potassium, take potassium 10 meq 4 tabs 2 times a day for 4 days, then 1 tab daily. Continue your current meds. For headache and body aches, take acetaminophen 500 mg 2 tabs 4 times a day for 4 doses, then continue as needed. See your doctor in 4-5 days for further recommendations. Call or return to the Emergency Department if you are feeling worse. Sepsis Event Note (ED) - Evaluation Sepsis Screening Result: No Definite Risk - Focused Exam Vital Signs: Vital Signs Temp Pulse Resp BP Pulse Ox 06/15/20 10:55 38.0 C 83 21 H 143/56 H 97 06/15/20 10:51 37.8 C 82 18 153/57 H 95 - My Orders Last 24 Hours: My Active Orders 06/15/20 11:36 Orthostatic Vital Signs [RC] ASDIRECTED 06/15/20 12:20 CULTURE URINE [RM] Stat - Assessment/Plan Last 24 Hours: My Active Orders 06/15/20 11:36 Orthostatic Vital Signs [RC] ASDIRECTED 06/15/20 12:20 CULTURE URINE [RM] Stat
--- NOTE | 2020-06-15 13:20 | CR ---
INDICATION: Weakness. CHEST TWO VIEWS: PA and lateral views of the chest were obtained 06/15/20 and compared with 03/26/19. Overlying EKG leads are noted. The heart is normal in size and shape. The aorta is calcified in the arch area as previously. Degenerative change is noted in the lower thoracic spine. An active infiltrate or effusion was not identified. IMPRESSION: No acute process. MTDD
--- NOTE | 2020-06-15 13:32 | CT ---
INDICATION: Confusion, memory problems. CT HEAD: Spiral 3.75 mm axial sections were obtained through the brain without contrast with axial, sagittal and coronal reconstructions 06/15/20 and compared with 04/10/19. Total exam DLP was 1296.53 mGy-cm. There is clearing of a previous probable sinusitis at the right maxillary antrum with paranasal sinuses appearing well aerated. Mastoid air cells appear to be well aerated. No cranial abnormality was identified. No shift of midline structures was identified. The ventricles are mildly prominent compatible with a mild degree of central atrophy and the patient's age. No definite arterial calcifications were noted. There is again noted some very minimal patchy decreased density in the white matter compatible with minimal microvascular disease. There does not appear to be gross progression of those changes, however. A very tiny low-density area in the anterior basal ganglia on the left appears new and would be compatible with a very tiny lacunar infarct in that area adjacent to the anterior limb of the left internal capsule seen on axial image 24. No other abnormal areas of density were identified - no bleeding or hematoma was seen. IMPRESSION: 1. No definite acute intracranial abnormality. There does appear to be one change with a tiny possible lacunar infarct at the left basal ganglia that appears new. 2. Relatively mild degree of central atrophy and minimal microvascular disease type changes in the white matter, although other cause of leukoencephalopathy cannot be excluded. 3. Resolution of previous right maxillary sinusitis. Report was called to Dr. Gautam at 1312 hours 06/15/20. [facility]
[2020-06-15] MEDS ORDERED: Potassium Chloride 20 MEQ Tab.ER PO ONE (13:36)
[2020-06-15] MEDS ORDERED: cefTRIAXone 1 GM Vial IVPUSH ONE (13:36)
== END 2020-06-15 14:38 | disposition home or self-care (01) ==
LOC: FB.ED 10:51
DX: N39.0 Urinary tract infection, site not specified (principal); E87.6 Hypokalemia; R53.1 Weakness; I10 Essential (primary) hypertension; I25.2 Old myocardial infarction; E11.9 Type 2 diabetes mellitus without complications; Z95.5 Presence of coronary angioplasty implant and graft; Z79.82 Long term (current) use of aspirin; Z79.899 Other long term (current) drug therapy
CPT/HCPCS: 36415; 70450; 71046; 80053; 81001; 83735; 84443; 84484; 85025; 85651; 86140; 87086; 96374; 99285; A9270; J0696; J7030

== ENCOUNTER 2020-07-19 21:28 | Emergency (ER) | payer MEDICARE ==
[2020-07-19] MEDS ORDERED: Potassium Chloride 20 MEQ Tab.ER PO ONE (21:52)
--- NOTE | 2020-07-19 21:56 | EDM.PDOC ---
ED HPI GENERAL MEDICAL PROBLEM - General Chief Complaint: General Stated Complaint: LOW POTASIUM Time Seen by Provider: 07/19/20 21:53 Source of Information: Reports: Patient History Limitations: Reports: No Limitations - History of Present Illness INITIAL COMMENTS - FREE TEXT/NARRATIVE: Heather comes in at the behest of Dr King due to low potassium. She had a routine check up today and a BMP showed a K of 2.6. She feels fine. has had occasional loose stools. No cardiovascular com,plaints. She takes HCTZ for HTN. - Related Data Allergies Allergy/AdvReac Type Severity Reaction Status Date / Time No Known Allergies Allergy Verified 03/26/19 14:30 Home Meds: Home Meds Aspirin [Halfprin] 81 mg PO DAILY 03/26/19 [History] Esomeprazole Magnesium 40 mg PO ACBREAKFAST 03/26/19 [History] Latanoprost 1 drop EYEBOTH BEDTIME 03/26/19 [History] Levothyroxine Sodium [Synthroid] 75 mcg PO ACBREAKFAST 03/26/19 [History] Losartan Potassium 100 mg PO DAILY 03/26/19 [History] Prevagen 1 cap PO DAILY 03/26/19 [History] Ticagrelor [Brilinta] 90 mg PO BID 03/26/19 [History] Venlafaxine HCl [Venlafaxine ER] 75 mg PO DAILY 03/26/19 [History] amLODIPine [Norvasc] 5 mg PO DAILY 03/26/19 [History] atorvaSTATin [Lipitor] 30 mg PO BEDTIME 03/26/19 [History] metFORMIN HCl [Metformin HCl ER] 500 mg PO DAILY 03/26/19 [History] Sulfamethoxazole/Trimethoprim [Sulfamethoxazole-Tmp Ds Tablet] 1 each PO DAILY 04/10/19 [History] Amoxicillin/Clavulanate K [Augmentin 500-125 MG] 1 tab PO Q8H #14 tab 06/15/20 [Rx] Cetirizine HCl [Allergy Relief] 10 mg PO ASDIRECTED PRN 06/15/20 [History] Oxybutynin Chloride [Oxybutynin Chloride ER] 10 mg PO DAILY 06/15/20 [History] Potassium Chloride 10 meq PO ASDIRECTED #60 tablet.er 06/15/20 [Rx] amLODIPine [Norvasc] 5 mg PO DAILY 06/15/20 [History] hydroCHLOROthiazide [Hydrochlorothiazide] 25 mg PO DAILY 06/15/20 [History] Potassium Chloride [Klor-Con M20] 20 meq PO TID #21 tab.er 07/19/20 [Rx] Past Medical History HEENT History: Reports: Cataract, Impaired Vision Cardiovascular History: Reports: Hypertension, [place], Stents Genitourinary History: Reports: Urinary Incontinence [employer]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: Musculoskeletal History: Reports: Arthritis, Back Pain, Chronic Psychiatric History: Reports: Depression Endocrine/Metabolic History: Reports: Diabetes, Type II - Past Surgical History HEENT Surgical History: Reports: Oral Surgery GI Surgical History: Reports: Appendectomy, Cholecystectomy, Colonoscopy, EGD Female Surgical History: Reports: Hysterectomy, Ureteral Stent Musculoskeletal Surgical History: Reports: Carpal Tunnel, Hip Replacement, Other (See Below) Other Musculoskeletal Surgeries/Procedures:: Neck surgery, back surgery Social & Family History - Family History Neurological: Reports: Cerebral Aneurysms - Tobacco Use Tobacco Use Status *Q: Former Tobacco User Used Tobacco, but Quit: Yes Month/Year Tobacco Last Used: 1999 - Caffeine Use Caffeine Use: Reports: Soda ED ROS GENERAL - Review of Systems Review Of Systems: See Below ED EXAM, GENERAL - Physical Exam Exam: See Below Exam Limited By: No Limitations General Appearance: Alert, WD/WN, No Apparent Distress Ears: Normal External Exam, Normal Canal, Hearing Grossly Normal, Normal TMs Nose: Normal Inspection Throat/Mouth: Normal Inspection Head: Atraumatic Neck: Normal Inspection Respiratory/Chest: No Respiratory Distress Cardiovascular: Normal Peripheral Pulses Course - Vital Signs Last Recorded V/S: Last Vital Signs Temp 97.0 F 07/19/20 21:28 Pulse 76 07/19/20 21:28 Resp 17 07/19/20 21:28 BP 150/61 H 07/19/20 21:28 Pulse Ox 97 07/19/20 21:28 - Orders/Labs/Meds Orders: Active Orders 24 hr Category Date Time Status BASIC METABOLIC PANEL,BMP [CHEM] Stat Lab 07/19/20 21:45 Received Meds: Medications Discontinued Medications Generic Name Dose Route Start Last Admin Trade Name Freq PRN Reason Stop Dose Admin Potassium Chloride 40 meq 07/19/20 21:52 07/19/20 21:58 Potassium Chloride 20 Meq Tab.Er PO 07/19/20 21:53 40 meq ONETIME ONE Administration Departure - Departure Time of Disposition: 21:55 Disposition: Home, Self-Care 01 Condition: Good Clinical Impression: Hypokalemia, Hypokalemia - Discharge Information Prescriptions: Potassium Chloride [Klor-Con M20] 20 meq PO TID #21 tab.er Referrals: Janene King MD [Primary Care Provider] - Forms: ED Department Discharge Sepsis Event Note (ED) - Evaluation Sepsis Screening Result: No Definite Risk - Focused Exam Vital Signs: Vital Signs Temp Pulse Resp BP Pulse Ox 07/19/20 21:28 97.0 F 76 17 150/61 H 97 - Problem List & Annotations (1) Hypokalemia SNOMED Code(s): 73887570 Code(s): E87.6 - HYPOKALEMIA Status: Acute - Problem List Review Problem List Initiated/Reviewed/Updated: Yes - My Orders Last 24 Hours: My Active Orders 07/19/20 21:45 BASIC METABOLIC PANEL,BMP [CHEM] Stat - Assessment/Plan Last 24 Hours: My Active Orders 07/19/20 21:45 BASIC METABOLIC PANEL,BMP [CHEM] Stat Plan: I will DC her home on [place] 20 meq tid
== END 2020-07-19 22:24 | disposition home or self-care (01) ==
LOC: FB.ED 21:28
DX: E87.6 Hypokalemia (principal); I10 Essential (primary) hypertension; I25.2 Old myocardial infarction; E11.9 Type 2 diabetes mellitus without complications; Z79.84 Long term (current) use of oral hypoglycemic drugs; M19.90 Unspecified osteoarthritis, unspecified site; Z87.891 Personal history of nicotine dependence; Z79.82 Long term (current) use of aspirin; Z79.899 Other long term (current) drug therapy
CPT/HCPCS: 36415; 80048; 99283; 99284; A9270-GY

== ENCOUNTER 2021-10-15 16:35 | Emergency (ER) | payer MEDICARE ==
[2021-10-15] MEDS ORDERED: Nitrofurantoin Monohydrate/Macrocrystalline 100 MG Cap PO ONE (16:36)
== END 2021-10-15 17:45 | disposition home or self-care (01) ==
LOC: FB.ED 16:35
DX: N39.0 Urinary tract infection, site not specified (principal); I10 Essential (primary) hypertension; I25.2 Old myocardial infarction; E11.9 Type 2 diabetes mellitus without complications; Z95.5 Presence of coronary angioplasty implant and graft; Z79.84 Long term (current) use of oral hypoglycemic drugs; Z79.82 Long term (current) use of aspirin; Z79.02 Long term (current) use of antithrombotics/antiplatelets; Z79.899 Other long term (current) drug therapy
CPT/HCPCS: 81001; 87086; 87088; 87186; 99283; A9270

== ENCOUNTER 2022-04-26 12:59 | Emergency (ER) | payer OTHER, MEDICARE | END 2022-04-26 14:05 | disposition home or self-care (01) | LOC: FB.ED 12:59 | DX: S52.501A Unspecified fracture of the lower end of right radius, initial encounter for closed fracture (principal); S52.601A Unspecified fracture of lower end of right ulna, initial encounter for closed fracture; I10 Essential (primary) hypertension; I25.2 Old myocardial infarction; M19.90 Unspecified osteoarthritis, unspecified site; E11.9 Type 2 diabetes mellitus without complications; Z79.84 Long term (current) use of oral hypoglycemic drugs; Z79.899 Other long term (current) drug therapy; Z79.82 Long term (current) use of aspirin; W00.0XXA Fall on same level due to ice and snow, initial encounter | CPT/HCPCS: 73110-RT; 99282; 99283 ==

== ENCOUNTER 2022-04-28 10:20 | Emergency (ER) | payer OTHER, MEDICARE ==
[2022-04-28] MEDS ORDERED: Sodium Chloride 0.9% 1,000 ML IV ONE ×2 (10:28→11:48)
[2022-04-28] MEDS ORDERED: Atropine 0.4 MG/ML SDV IVPUSH ONE ×2 (10:38→11:04)
[2022-04-28 10:55] LABS: ESTIMATED GFR 42 mL/min (>60)
[2022-04-28] MEDS ORDERED: Atropine 0.4 MG/ML SDV ONE (11:13)
[2022-04-28] MEDS ORDERED: cefTRIAXone 2 GM Vial IVPUSH ONE (11:34)
[2022-04-28] MEDS ORDERED: Sodium Chloride 0.9% 1,000 ML IV SCH (13:00)
[2022-04-28 13:20] LABS: CORONAVIRUS COVID-19 NAA NEGATIVE (NEGATIVE)
== END 2022-04-28 13:24 ==
LOC: FB.ED 10:20
DX: F33.9 Major depressive disorder, recurrent, unspecified (principal); I25.10 Atherosclerotic heart disease of native coronary artery without angina pectoris; E11.9 Type 2 diabetes mellitus without complications; I10 Essential (primary) hypertension; R53.1 Weakness; Z79.82 Long term (current) use of aspirin; Z79.899 Other long term (current) drug therapy; Z79.02 Long term (current) use of antithrombotics/antiplatelets; Z79.84 Long term (current) use of oral hypoglycemic drugs; Z20.822 Contact with and (suspected) exposure to COVID-19
CPT/HCPCS: 0241U; 36415; 71045; 80053; 80307; 81001; 83605; 83735; 84484; 85025; 87040; 93005; 96361; 96374; 96375; 99285; J0461; J0696; J7030

== ENCOUNTER 2023-04-08 23:40 | Observation (INO) | payer MEDICARE, OTHER ==
[2023-04-09] MEDS: Sodium Chloride 0.9% 1,000 ML IV ONE (00:12)
[2023-04-09] MEDS: Ondansetron 4 MG/2 ML SDV IVPUSH ONE (00:13)
[2023-04-09 00:51] LABS: HEMATOCRIT 44.4 % (34.2-48.2); HEMOGLOBIN 15.3 g/dL (11.4-15.5); MEAN CORPUSCULAR HEMOGLOBIN 31.4 pg (23.9-33.9); MEAN CORPUSCULAR HGB CONC 34.3 g/dL (31.9-34.8); MEAN CORPUSCULAR VOLUME 91.4 fL (76.7-100.5); MEAN PLATELET VOLUME 9.1 fL (7.1-12.4); PLATELET COUNT,PLT 303 x10(3)uL (151-488); RED BLOOD CELL COUNT 4.86 x10(6)uL (3.60-5.20); RED CELL DISTRIBUTION WIDTH 12.4 % (12.3-16.5); WHITE BLOOD CELL COUNT,WBC 14.7 x10-3/uL (3.0-10.3)
[2023-04-09 01:04] LABS: BLOOD UREA NITROGEN,BUN 13 mg/dL (7-18); CALCIUM 9.6 mg/dL (8.6-10.2); CARBON DIOXIDE,CO2 28 mmol/L (21-32); CHLORIDE,CL 101 mmol/L (100-110); ESTIMATED GFR 58 mL/min (>60); GLUCOSE RANDOM 168 mg/dL (80-116); POTASSIUM,K 2.9 mmol/L (3.5-5.3); SODIUM,NA 140 mmol/L (135-145)
[2023-04-09 01:11] LABS: ALANINE AMINOTRANSFERASE,ALT 40 U/L (12-36); ALBUMIN 3.5 g/dL (3.2-4.6); ALKALINE PHOSPHATASE 68 IU/L (56-112); ASPARTATE AMNIOTRANSFERASE,AST 27 IU/L (5-25); BILIRUBIN TOTAL 0.4 mg/dL (0.1-1.3); PROTEIN TOTAL,TP 7.1 g/dL (6.0-8.0)
[2023-04-09 01:39] LABS: INFLUENZA A NAA NEGATIVE (NEGATIVE); INFLUENZA B NAA NEGATIVE (NEGATIVE); RESPIRATORY SYNCYTIAL VIR NAA NEGATIVE (NEGATIVE)
[2023-04-09 01:41] LABS: BILIRUBIN,URINE NEGATIVE (NEGATIVE); GLUCOSE,URINE 50 mg/dL (NORMAL); KETONES,URINE NEGATIVE (NEGATIVE); LEUKOCYTE ESTERASE,URINE NEGATIVE (NEGATIVE); NITRITE,URINE NEGATIVE (NEGATIVE); OCCULT BLOOD,URINE NEGATIVE (NEGATIVE); PROTEIN,URINE NEGATIVE (NEGATIVE); UROBILINOGEN,URINE NORMAL (NEGATIVE)
[2023-04-09] MEDS: Potassium Chloride 20 MEQ Tab.ER PO ONE (01:44)
[2023-04-09] MEDS: cloNIDine 0.1 MG Tab PO ONE (01:44)
[2023-04-09 01:45] LABS: APPEARANCE,URINE CLEAR (CLEAR); COLOR,URINE YELLOW (YELLOW); RBC,URINE 0-5 (0-5)
[2023-04-09 01:45] LABS: CORONAVIRUS COVID-19 NAA NEGATIVE (NEGATIVE)
[2023-04-09 01:46] LABS: BACTERIA,URINE FEW (NS); MUCUS,URINE OCCASIONAL (NS); SQUAMOUS EPITHELIAL CELLS,UR FEW (NS,R,O); WBC,URINE 0-5 (0-5)
[2023-04-09 01:53] LABS: LIPASE 1242 U/L (16-77); TROPONIN I < 4.0 pg/mL (4.0-60.3)
[2023-04-09 02:05] LABS: BAND PERCENT MAN 3 % (0-6); EOSINOPHILS PERCENT MAN 2 % (0-5); LYMPHOCYTES PERCENT MAN 22 % (13-37); MONOCYTES PERCENT MAN 7 % (4-12); SEG NEUTROPHILS PERCENT MAN 66 % (46-82)
[2023-04-09] MEDS: Iopamidol 755 Mg/ML 100 ML Bottle IV SCH (03:25)
[2023-04-09] MEDS: Losartan 50 MG Tab PO ONE (03:57)
[2023-04-09] MEDS: amLODIPine 5 MG Tab PO ONE (03:57)
[2023-04-09] MEDS ORDERED: Bisacodyl 5 MG Tab PO PRN (04:19)
[2023-04-09] MEDS ORDERED: Magnesium Hydroxide 400 MG/5 ML Susp 30 ML Cup PO PRN (04:19)
[2023-04-09] MEDS ORDERED: Ondansetron 4 MG/2 ML SDV IV PRN (06:00)
[2023-04-09] MEDS: Sodium Chloride 0.45% with KCl 1,000 ML IV SCH (06:05)
[2023-04-09] MEDS ORDERED: PREVAGEN PO SCH (09:00)
[2023-04-09] MEDS: Potassium Chloride 20 MEQ Tab.ER PO SCH (09:14)
[2023-04-09] MEDS: Venlafaxine 75 MG Cap.ER PO SCH (09:14)
[2023-04-09] MEDS: Levothyroxine 75 MCG Tab PO SCH (09:14)
[2023-04-09] MEDS: Aspirin 81 MG Tab.EC PO SCH (09:14)
[2023-04-09 09:57] LABS: BLOOD UREA NITROGEN,BUN 10 mg/dL (7-18); CARBON DIOXIDE,CO2 30 mmol/L (21-32); CHLORIDE,CL 103 mmol/L (100-110); GLUCOSE RANDOM 182 mg/dL (80-116); POTASSIUM,K 4.7 mmol/L (3.5-5.3); SODIUM,NA 140 mmol/L (135-145)
[2023-04-09 09:58] LABS: CALCIUM 9.1 mg/dL (8.6-10.2); ESTIMATED GFR 58 mL/min (>60)
[2023-04-09] MEDS: Rosuvastatin 20 MG Tab PO SCH (10:12)
[2023-04-09] MEDS ORDERED: Losartan 50 MG Tab PO SCH (21:00)
[2023-04-09] MEDS ORDERED: Donepezil 10 MG Tab PO SCH (21:00)
[2023-04-10] MEDS ORDERED: amLODIPine 2.5 MG Tab PO SCH (09:00)
== END 2023-04-09 11:40 | disposition home or self-care (01) ==
LOC: FB.ED 23:40 → FB.MS 04-09 03:43
PROVIDERS: ADMIT Family Medicine; ATTEND Family Medicine
DX: K85.90 Acute pancreatitis without necrosis or infection, unspecified (principal); I10 Essential (primary) hypertension; F03.A0 Unspecified dementia, mild, without behavioral disturbance, psychotic disturbance, mood disturbance, and anxiety; I45.10 Unspecified right bundle-branch block; E87.6 Hypokalemia; R74.8 Abnormal levels of other serum enzymes; E11.9 Type 2 diabetes mellitus without complications; I25.10 Atherosclerotic heart disease of native coronary artery without angina pectoris; R55 Syncope and collapse; F32.9 Major depressive disorder, single episode, unspecified; Z87.891 Personal history of nicotine dependence; Z95.5 Presence of coronary angioplasty implant and graft; Z98.890 Other specified postprocedural states; Z79.899 Other long term (current) drug therapy; Z79.82 Long term (current) use of aspirin; Z79.84 Long term (current) use of oral hypoglycemic drugs
CPT/HCPCS: 0241U; 36415; 70450; 71046; 74019; 74177; 80048; 80053; 81001; 83605; 83690; 83735; 84484; 85025; 86140; 87040; 93005; 93010; 96361; 96365; 96366; 96374; 96375; 99223; 99285; 99285-25; A9270-GY; G0378; J2405; J3480; J7030; Q9967

== ENCOUNTER 2024-02-04 11:25 | Emergency (ER) | payer MEDICARE ==
[2024-02-04 11:56] LABS: HEMOGLOBIN 14.3 g/dL (11.4-15.5); MEAN CORPUSCULAR HEMOGLOBIN 30.7 pg (23.9-33.9); MEAN CORPUSCULAR HGB CONC 34.1 g/dL (31.9-34.8); PLATELET COUNT,PLT 243 x10(3)uL (151-488); RED BLOOD CELL COUNT 4.67 x10(6)uL (3.60-5.20); RED CELL DISTRIBUTION WIDTH 13.2 % (12.3-16.5)
[2024-02-04 11:58] LABS: BLOOD UREA NITROGEN,BUN 13 mg/dL (7-18); BUN/CREATININE RATIO 11.8 (9-20); CALCIUM 9.3 mg/dL (8.6-10.2); CARBON DIOXIDE,CO2 27 mmol/L (21-32); CHLORIDE,CL 107 mmol/L (100-110); CREATININE 1.1 mg/dL (0.55-1.02); ESTIMATED GFR 51 mL/min (>60); GLUCOSE RANDOM 164 mg/dL (80-116); POTASSIUM,K 3.4 mmol/L (3.5-5.3); SODIUM,NA 146 mmol/L (135-145)
[2024-02-04 12:03] LABS: LYMPHOCYTES PERCENT MAN 5 % (13-37); MONOCYTES PERCENT MAN 5 % (4-12); SEG NEUTROPHILS PERCENT MAN 90 % (46-82)
[2024-02-04 12:04] LABS: A/G RATIO 1.1; ALANINE AMINOTRANSFERASE,ALT 32 U/L (12-36); ALBUMIN 3.3 g/dL (3.2-4.6); ALKALINE PHOSPHATASE 58 IU/L (56-112); ASPARTATE AMNIOTRANSFERASE,AST 32 IU/L (5-25); BILIRUBIN TOTAL 0.6 mg/dL (0.1-1.3); PROTEIN TOTAL,TP 6.3 g/dL (6.0-8.0)
[2024-02-04] MEDS: Sodium Chloride 0.9% 1,000 ML IV SCH (13:00)
[2024-02-04 14:29] LABS: BILIRUBIN,URINE NEGATIVE (NEGATIVE); GLUCOSE,URINE 100 mg/dL (NORMAL); KETONES,URINE NEGATIVE (NEGATIVE); LEUKOCYTE ESTERASE,URINE NEGATIVE (NEGATIVE); NITRITE,URINE NEGATIVE (NEGATIVE); OCCULT BLOOD,URINE NEGATIVE (NEGATIVE); PROTEIN,URINE NEGATIVE (NEGATIVE); UROBILINOGEN,URINE NORMAL (NEGATIVE)
[2024-02-04 14:34] LABS: APPEARANCE,URINE CLEAR (CLEAR); BACTERIA,URINE FEW (NS); COLOR,URINE YELLOW (YELLOW); RBC,URINE NOT SEEN (0-5); SQUAMOUS EPITHELIAL CELLS,UR FEW (NS,R,O); WBC,URINE 0-5 (0-5)
== END 2024-02-04 14:48 | disposition home or self-care (01) ==
LOC: FB.ED 11:25
DX: U07.1 COVID-19 (principal); R53.1 Weakness; I25.2 Old myocardial infarction; I10 Essential (primary) hypertension; E11.9 Type 2 diabetes mellitus without complications; Z90.49 Acquired absence of other specified parts of digestive tract; Z90.710 Acquired absence of both cervix and uterus; Z96.649 Presence of unspecified artificial hip joint; Z79.82 Long term (current) use of aspirin; Z79.890 Hormone replacement therapy; Z79.899 Other long term (current) drug therapy
CPT/HCPCS: 36415; 71045; 80053; 81001; 84484; 85025; 87428-QW; 93005; 93010; 96360; 99283; 99285-25; J7030

== ENCOUNTER 2024-02-06 15:28 | Emergency (ER) | payer MEDICARE | END 2024-02-06 16:59 | disposition home or self-care (01) | LOC: FB.ED 15:28 | DX: U07.1 COVID-19 (principal); J20.9 Acute bronchitis, unspecified; I25.2 Old myocardial infarction; I10 Essential (primary) hypertension; E11.9 Type 2 diabetes mellitus without complications; Z90.49 Acquired absence of other specified parts of digestive tract; Z90.710 Acquired absence of both cervix and uterus; Z96.649 Presence of unspecified artificial hip joint; Z79.82 Long term (current) use of aspirin; Z79.890 Hormone replacement therapy; Z79.899 Other long term (current) drug therapy | CPT/HCPCS: 99283 ==

== ENCOUNTER 2024-11-02 01:51 | Emergency (ER) | payer MEDICARE ==
[2024-11-02] MEDS ORDERED: Sodium Chloride 0.9% 10 ML Syringe FLUSH PRN (02:01)
[2024-11-02 02:14] LABS: BASOPHILS ABSOLUTE AUTO 0.1 x10-3/uL (0.0-0.1); BASOPHILS PERCENT AUTO 0.9 % (0.2-1.5); EOSINOPHILS ABSOLUTE AUTO 0.3 x10-3/uL (0.0-0.8); EOSINOPHILS PERCENT AUTO 2.5 % (0.6-8.1); LYMPHOCYTES ABSOLUTE AUTO 1.9 x10-3/uL (1.0-4.4); LYMPHOCYTES PERCENT AUTO 18.4 % (18.4-52.1); MEAN PLATELET VOLUME 8.4 fL (7.1-12.4); MONOCYTES ABSOLUTE AUTO 0.6 x10-3/uL (0.3-1.0); MONOCYTES PERCENT AUTO 5.4 % (4.4-15.7); NEUTROPHILS ABSOLUTE AUTO 7.4 x10-3/uL (1.5-6.3); NEUTROPHILS PERCENT AUTO 72.8 % (30.8-76.2); PLATELET COUNT,PLT 283 x10(3)uL (151-488); RED BLOOD CELL COUNT 4.78 x10(6)uL (3.60-5.20); RED CELL DISTRIBUTION WIDTH 13.4 % (12.3-16.5); WHITE BLOOD CELL COUNT,WBC 10.2 x10-3/uL (3.0-10.3)
[2024-11-02] MEDS: Ondansetron 4 MG/2 ML SDV IVPUSH ONE (02:17)
[2024-11-02 02:18] LABS: BLOOD UREA NITROGEN,BUN 17 mg/dL (7-18); CARBON DIOXIDE,CO2 27 mmol/L (21-32); CHLORIDE,CL 104 mmol/L (100-110); CREATININE 1.1 mg/dL (0.55-1.02); ESTIMATED GFR 51 mL/min (>60); GLUCOSE RANDOM 167 mg/dL (80-116); POTASSIUM,K 3.7 mmol/L (3.5-5.3); SODIUM,NA 140 mmol/L (135-145)
[2024-11-02 02:30] LABS: A/G RATIO 1.0; ALANINE AMINOTRANSFERASE,ALT 44 U/L (12-36); ASPARTATE AMNIOTRANSFERASE,AST 117 IU/L (5-25); BILIRUBIN TOTAL 0.8 mg/dL (0.1-1.3); PRO B-TYPE NATRIUR PEPT,BNPPRO 268.0 pg/mL (<=450); PROTEIN TOTAL,TP 7.1 g/dL (6.0-8.0)
[2024-11-02] MEDS: HYDROmorphone 2 MG/ML SDV IVPUSH PRN (02:48)
== END 2024-11-02 05:56 | disposition home or self-care (01) ==
LOC: FB.ED 01:51
DX: K29.00 Acute gastritis without bleeding (principal); I10 Essential (primary) hypertension; I25.2 Old myocardial infarction; E11.9 Type 2 diabetes mellitus without complications; Z95.5 Presence of coronary angioplasty implant and graft; Z90.49 Acquired absence of other specified parts of digestive tract; Z88.5 Allergy status to narcotic agent; Z79.82 Long term (current) use of aspirin; Z79.890 Hormone replacement therapy; Z79.899 Other long term (current) drug therapy
CPT/HCPCS: 36415; 71045; 80053; 83880; 84484; 85025; 93005; 96361; 96374; 96375; 99284; J1171; J2405; J2470; J7030